=== PATIENT | female | born 1945 | race Caucasian/White ===

== ENCOUNTER 2016-08-24 08:22 | Outpatient (CLI) | payer OTHER, MEDICAID ==
[~2016-08-24 08:22] MED LIST: DABI150C PO; FAMO-90 PO; GABA300C1 PO; GEMF600T8 PO; INSU100S22 SQ; INSU100S22 SUBQ; INSU100S45 SUBQ; LIRA6SOL SC; [UNRECOGNIZED DRUG - REMARK]
[2016-08-24 08:50] LABS: BASOPHILS # (AUTO) 0.1 K/uL (0.00-0.22); BASOPHILS % (AUTO) 1.5 % (0.0-2.0); EOSINOPHILS # (AUTO) 0.2 K/uL (0-0.4); EOSINOPHILS % (AUTO) 2.5 % (0.0-4.0); HEMATOCRIT 41.6 % (36-48); HEMOGLOBIN 13.6 g/dL (12.0-16.0); LYMPHOCYTES # (AUTO) 0.9 K/uL (2.5-16.5); LYMPHOCYTES % (AUTO) 14.9 % (20.5-51.1); MEAN CORPUSCULAR HEMOGLOBIN 31 pg (27-31); MEAN CORPUSCULAR HGB CONC 33 g/dL (33-37); MEAN CORPUSCULAR VOLUME 95 fL (80-94); MONOCYTES # (AUTO) 0.5 K/uL (0.8-1.0); MONOCYTES % (AUTO) 7.5 % (1.7-9.3); NEUTROPHILS # (AUTO) 4.4 K/uL (1.8-7.7); NEUTROPHILS % (AUTO) 73.6 % (42.2-75.2); PLATELET COUNT (AUTO) 196 K/uL (140-450); RED BLOOD CELL COUNT(AUTO) 4.38 MIL/uL (4.20-5.40); RED CELL DISTRIBUTION WIDTH 12.9 % (11.6-13.7); WHITE BLOOD COUNT (AUTO) 6.1 K/uL (4.8-10.8)
[2016-08-24 09:29] LABS: POTASSIUM 3.9 mmol/L (3.5-5.1)
[2016-08-24 09:30] LABS: ANION GAP 13.1 (8-16); CALCIUM 9.2 mg/dL (8.5-10.1); CARBON DIOXIDE 26.8 mmol/L (21-32)
[2016-08-24 09:44] LABS: ALBUMIN 3.4 g/dL (3.4-5.0); TOTAL BILIRUBIN 0.5 mg/dL (0.0-1.0); TOTAL PROTEIN, SERUM 7.3 g/dL (6.4-8.2)
[2016-08-24 09:56] LABS: CHOL/HDL RATIO 2.1 (1-4.5)
[2016-08-24 10:25] LABS: THYROID STIMULATING HORMONE 1.01 uIU/mL (0.34-3.76)
== END 2016-08-24 20:12 | disposition home or self-care (01) ==
LOC: MLB 08:22
PROVIDERS: ATTEND Family Medicine
DX: I48.91 Unspecified atrial fibrillation (principal); E11.9 Type 2 diabetes mellitus without complications; I10 Essential (primary) hypertension
CPT/HCPCS: 36415; 80053; 83036; 84443; 85025

== ENCOUNTER 2016-12-16 20:15 | Inpatient (IN) | payer OTHER, MEDICAID ==
[~2016-12-16] VITALS: Ht 170.2 cm; Wt 90.7 kg
[2016-12-16 20:30] VITALS: BP 125/72
[2016-12-16] MEDS ORDERED: NACL 0.9% 1,000 ML IV ONE (20:45)
[2016-12-16] MEDS ORDERED: [UNRECOGNIZED DRUG - CODE] PO (21:08)
[2016-12-16] MEDS ORDERED: ATOR40TA PO (21:08)
[2016-12-16] MEDS ORDERED: LEVOFLOXACIN 500 MG/D5W PREMIX 100 ML IV ONE (21:30)
[2016-12-16 21:40] LABS: HEMATOCRIT 34.9 % (36-48); HEMOGLOBIN 11.3 g/dL (12.0-16.0); MEAN CORPUSCULAR HEMOGLOBIN 31 pg (27-31); MEAN CORPUSCULAR HGB CONC 32 g/dL (33-37); MEAN CORPUSCULAR VOLUME 95 fL (80-94); PLATELET COUNT (AUTO) 267 K/uL (140-450); RED BLOOD CELL COUNT(AUTO) 3.67 MIL/uL (4.20-5.40); RED CELL DISTRIBUTION WIDTH 13.5 % (11.6-13.7); WHITE BLOOD COUNT (AUTO) 18.5 K/uL (4.8-10.8)
[2016-12-16 21:43] LABS: BILIRUBIN,URINE NEGATIVE (NEGATIVE); BLOOD, URINE 1+ (NEGATIVE); LEUKOCYTE ESTERASE ,URINE 1+ (NEGATIVE); NITRITE, URINE NEGATIVE (NEGATIVE); UGLUCOSE NEGATIVE (NEGATIVE)
[2016-12-16 21:49] LABS: BARBITURATE, URINE NEG. ng/ml (NEG <=200); BENZODIAZEPINE, URINE NEG. ng/mL (NEG <=200); CANNABINOID, URINE NEG. ng/mL (NEG <=50); COCAINE, URINE NEG. ng/mL (NEG <=300); OPIATE, URINE NEG. ng/mL (NEG <=2000); PHENCYCLIDINE SCREEN,URINE NEG. ng/mL (NEG <=25)
[2016-12-16 21:55] LABS: APPEARANCE,URINE CLOUDY (CLEAR); COLOR,URINE YELLOW (YELLOW)
[2016-12-16 22:04] LABS: ALBUMIN 2.4 g/dL (3.4-5.0); ANION GAP 11.4 (8-16); CREATININE 1.5 mg/dL (0.6-1.3); POTASSIUM 3.4 mmol/L (3.5-5.1); TOTAL BILIRUBIN 0.6 mg/dL (0.0-1.0)
[2016-12-16 22:05] LABS: PROTHROMBIN TIME 16.1 secs (10.8-13.4)
[2016-12-16 22:07] LABS: LYMPHOCYTES % (MANUAL) 6 % (20-46); MONOCYTES % (MANUAL) 5 % (5-12)
[2016-12-16 22:13] LABS: RBC,URINE 3-10 (FEW) /HPF (0-5); WBC,URINE TOO MANY TO COUNT /HPF (0-5)
[2016-12-16] MEDS ORDERED: NACL 0.9% 2,000 ML IV ONE (22:20)
[2016-12-16 22:23] LABS: SALICYLATE < 2.8 mg/dL (2.8-20.0)
[2016-12-16 22:24] LABS: ACETAMINOPHEN < 0.5 ug/ml (10-30)
[2016-12-16 23:00] VITALS: BP 90/46
[2016-12-16] MEDS ORDERED: DEXTROSE 50% 50 ML SYR IVP PRN (23:55)
[2016-12-17] VITALS (11 sets, daily range): BP systolic 75–154; BP diastolic 40–75
[2016-12-17] MEDS: NACL 0.45% 1,000 ML IV SCH ×2 (00:32→13:29)
[2016-12-17] MEDS: BLOOD GLUCOSE MONITORING 1 DEV DEV FS SCH ×5 (00:33→21:46)
[2016-12-17] MEDS: INSULIN LISPRO SLIDING SCALE 100 UNITS/ML VIAL SUBQ PRN ×4 (00:35→22:35)
[2016-12-17] MEDS ORDERED: ACETAMINOPHEN 325 MG TAB PO PRN (01:15)
[2016-12-17] MEDS ORDERED: DIGOXIN 0.25 MG TAB PO SCH (02:15)
[2016-12-17] MEDS ORDERED: NACL 0.9% 250 ML IV SCH (05:00)
[2016-12-17] MEDS: DIGOXIN 0.25 MG TAB PO SCH (09:00)
[2016-12-17] MEDS ORDERED: POTASSIUM CHLORIDE 10 MEQ TABER PO SCH (09:30)
[2016-12-17 09:39] LABS: HEMATOCRIT 32.8 % (36-48); HEMOGLOBIN 10.5 g/dL (12.0-16.0); MEAN CORPUSCULAR HEMOGLOBIN 31 pg (27-31); MEAN CORPUSCULAR HGB CONC 32 g/dL (33-37); MEAN CORPUSCULAR VOLUME 96 fL (80-94); PLATELET COUNT (AUTO) 221 K/uL (140-450); RED BLOOD CELL COUNT(AUTO) 3.42 MIL/uL (4.20-5.40); WHITE BLOOD COUNT (AUTO) 27.6 K/uL (4.8-10.8)
[2016-12-17 10:01] LABS: BASOPHILS % (MANUAL) 0 % (0-2); EOSINOPHILS % (MANUAL) 0 % (0-4); LYMPHOCYTES % (MANUAL) 4 % (20-46); MONOCYTES % (MANUAL) 7 % (5-12)
[2016-12-17 10:13] LABS: CREATINE KINASE MB 0.5 ng/mL (0-3.6)
[2016-12-17 10:26] LABS: ANION GAP 8.7 (8-16); CREATININE 1.6 mg/dL (0.6-1.3); POTASSIUM 3.7 mmol/L (3.5-5.1); TOTAL BILIRUBIN 0.5 mg/dL (0.0-1.0)
[2016-12-17] MEDS ORDERED: INSULIN GLARGINE HUM REC ANLOG U SQ SCH (16:00)
[2016-12-17] MEDS: INSULIN DETEMIR 100 UNITS/ML 10 ML VIAL SUBQ SCH (17:58)
[2016-12-17] MEDS ORDERED: LEVOFLOXACIN 250 MG/D5 PREMIX 50 ML IV SCH (21:00)
[2016-12-17] MEDS: FAMOTIDINE 20 MG TAB PO SCH (21:46)
[2016-12-17] MEDS: METOPROLOL 25 MG TAB PO SCH (21:46)
[2016-12-17] MEDS: GABAPENTIN 300 MG CAP PO SCH (21:46)
[2016-12-17] MEDS: DABIGATRAN ETEXILATE MESYLAT 75 MG CAP PO SCH (22:37)
[2016-12-18] VITALS: BP 89/47
[2016-12-18] MEDS: NACL 0.45% 1,000 ML IV SCH (00:28)
[2016-12-18 04:00] VITALS: BP 122/59
[2016-12-18 06:08] LABS: HEMATOCRIT 32.1 % (36-48); HEMOGLOBIN 10.4 g/dL (12.0-16.0); MEAN CORPUSCULAR HEMOGLOBIN 31 pg (27-31); MEAN CORPUSCULAR HGB CONC 32 g/dL (33-37); MEAN CORPUSCULAR VOLUME 95 fL (80-94); PLATELET COUNT (AUTO) 203 K/uL (140-450); RED BLOOD CELL COUNT(AUTO) 3.37 MIL/uL (4.20-5.40); RED CELL DISTRIBUTION WIDTH 13.9 % (11.6-13.7); WHITE BLOOD COUNT (AUTO) 19.4 K/uL (4.8-10.8)
[2016-12-18 06:52] LABS: ANION GAP 12.8 (8-16); CARBON DIOXIDE 24.2 mmol/L (21-32); CREATININE 1.2 mg/dL (0.6-1.3)
[2016-12-18] MEDS: BLOOD GLUCOSE MONITORING 1 DEV DEV FS SCH ×4 (07:00→20:40)
[2016-12-18 07:04] LABS: FREE T4 (FREE THYROXINE) 1.46 ng/dL (0.76-1.46); THYROID STIMULATING HORMONE 0.44 uIU/mL (0.34-3.74)
[2016-12-18 08:00] VITALS: BP 115/83
[2016-12-18 08:05] LABS: EOSINOPHILS % (MANUAL) 4 % (0-4); LYMPHOCYTES % (MANUAL) 9 % (20-46); MONOCYTES % (MANUAL) 2 % (5-12)
[2016-12-18] MEDS: DIGOXIN 0.25 MG TAB PO SCH (08:40)
[2016-12-18] MEDS: METOPROLOL 25 MG TAB PO SCH ×2 (08:41→20:34)
[2016-12-18] MEDS: GABAPENTIN 300 MG CAP PO SCH ×2 (08:41→20:35)
[2016-12-18] MEDS: FAMOTIDINE 20 MG TAB PO SCH ×2 (08:41→20:35)
[2016-12-18] MEDS: DABIGATRAN ETEXILATE MESYLAT 75 MG CAP PO SCH ×2 (08:44→20:41)
[2016-12-18] MEDS: ATORVASTATIN 20 MG TAB PO SCH (08:44)
[2016-12-18] MEDS ORDERED: CLINICAL MONITORING MC SCH (09:00)
[2016-12-18] MEDS ORDERED: POTASSIUM CHLORIDE 10 MEQ TABER PO SCH (10:01)
[2016-12-18] MEDS: POTASSIUM CHL 20 MEQ/ 1/2 NS 1,000 ML IV SCH ×2 (10:26→23:03)
[2016-12-18 12:00] VITALS: BP 110/58
[2016-12-18] MEDS: MEROPENEM 500 MG in NACL 0.9% 50 ML IV SCH ×2 (12:13→20:34)
[2016-12-18] MEDS: INSULIN LISPRO SLIDING SCALE 100 UNITS/ML VIAL SUBQ PRN ×3 (12:18→21:15)
[2016-12-18 16:00] VITALS: BP 124/63
[2016-12-18] MEDS: INSULIN DETEMIR 100 UNITS/ML 10 ML VIAL SUBQ SCH (16:32)
[2016-12-18 20:00] VITALS: BP 128/68
[2016-12-19] VITALS: BP 138/67
[2016-12-19 04:00] VITALS: BP 129/57
[2016-12-19] MEDS: MEROPENEM 500 MG in NACL 0.9% 50 ML IV SCH (04:41)
[2016-12-19] MEDS: BLOOD GLUCOSE MONITORING 1 DEV DEV FS SCH ×2 (05:37→11:30)
[2016-12-19 06:28] LABS: BASOPHILS # (AUTO) 0.1 K/uL (0.00-0.22); BASOPHILS % (AUTO) 0.6 % (0.0-2.0); EOSINOPHILS # (AUTO) 0.4 K/uL (0-0.4); HEMATOCRIT 31.6 % (36-48); HEMOGLOBIN 10.4 g/dL (12.0-16.0); LYMPHOCYTES # (AUTO) 0.9 K/uL (2.5-16.5); MEAN CORPUSCULAR HEMOGLOBIN 31 pg (27-31); MEAN CORPUSCULAR HGB CONC 33 g/dL (33-37); MEAN CORPUSCULAR VOLUME 96 fL (80-94); MONOCYTES # (AUTO) 0.5 K/uL (0.8-1.0); MONOCYTES % (AUTO) 4.2 % (1.7-9.3); NEUTROPHILS # (AUTO) 10.8 K/uL (1.8-7.7); NEUTROPHILS % (AUTO) 85.2 % (42.2-75.2); PLATELET COUNT (AUTO) 213 K/uL (140-450); RED CELL DISTRIBUTION WIDTH 13.8 % (11.6-13.7)
[2016-12-19 06:46] LABS: ANION GAP 12.3 (8-16); CARBON DIOXIDE 25.8 mmol/L (21-32); CREATININE 1.1 mg/dL (0.6-1.3); POTASSIUM 4.1 mmol/L (3.5-5.1)
[2016-12-19 07:30] LABS: WHITE BLOOD COUNT (AUTO) 12.7 K/uL (4.8-10.8)
[2016-12-19 08:00] VITALS: BP 137/73
[2016-12-19] MEDS: FAMOTIDINE 20 MG TAB PO SCH (08:39)
[2016-12-19] MEDS: GABAPENTIN 300 MG CAP PO SCH (08:39)
[2016-12-19] MEDS: DIGOXIN 0.25 MG TAB PO SCH (08:39)
[2016-12-19] MEDS: ATORVASTATIN 20 MG TAB PO SCH (08:39)
[2016-12-19] MEDS: METOPROLOL 25 MG TAB PO SCH (08:40)
[2016-12-19] MEDS: DABIGATRAN ETEXILATE MESYLAT 75 MG CAP PO SCH (08:43)
[2016-12-19 12:00] VITALS: BP 111/66
[2016-12-19] MEDS: INSULIN LISPRO SLIDING SCALE 100 UNITS/ML VIAL SUBQ PRN (12:52)
== END 2016-12-19 16:15 | DRG 871 ==
LOC: MED 20:15 → MTU 23:44
PROVIDERS: ADMIT Family Medicine; ATTEND Family Medicine
DX: A41.51 Sepsis due to Escherichia coli [E. coli] (principal); R65.21 Severe sepsis with septic shock; I48.0 Paroxysmal atrial fibrillation; G93.89 Other specified disorders of brain; N39.0 Urinary tract infection, site not specified; I10 Essential (primary) hypertension; E86.0 Dehydration; E11.9 Type 2 diabetes mellitus without complications; D63.8 Anemia in other chronic diseases classified elsewhere; I48.2 Chronic atrial fibrillation; E78.5 Hyperlipidemia, unspecified; I25.10 Atherosclerotic heart disease of native coronary artery without angina pectoris; T67.5XXA Heat exhaustion, unspecified, initial encounter; E87.6 Hypokalemia; W01.0XXA Fall on same level from slipping, tripping and stumbling without subsequent striking against object, initial encounter; Z63.8 Other specified problems related to primary support group; I25.2 Old myocardial infarction; Z79.01 Long term (current) use of anticoagulants; Z79.899 Other long term (current) drug therapy; Y93.89 Activity, other specified; Y92.003 Bedroom of unspecified non-institutional (private) residence as the place of occurrence of the external cause; Z79.4 Long term (current) use of insulin
CPT/HCPCS: 36415; 70450; 71010; 80048; 80053; 80305; 81001; 82550; 82553; 82948; 83605; 83880; 84439; 84443; 84484; 85025; 85610; 85730; 87040; 87081; 87086; 87186; 93005; 96361; 96365; 97110; 99291; G0480; G0482; J0696; J1815; J1956; J2185; J3480; J7030; J7060; Q0092

== ENCOUNTER 2017-07-11 02:55 | Inpatient (IN) | payer OTHER, MEDICAID ==
[~2017-07-11] VITALS: Ht 162.6 cm; Wt 72.6 kg
[~2017-07-11 02:55] MED LIST changes: +ATOR40TA PO; +[UNRECOGNIZED DRUG - CODE] PO
[2017-07-11 02:59] VITALS: BP 112/65
--- NOTE | 2017-07-11 03:05 | NUR ---
72 Y/O F BIBA W/C/O HEDACHE S/P FALL AND HITTING HEAD, NAUSEA AND VOMITING X THIS AM. PT STATES HAS HAD HEAVY VAGINAL BLEEDING X 2 DAYS. PT ALERT AND ORIENTED X 4, ON CARDIA MONITOR. ER MD MADE AWARE.
[2017-07-11] MEDS ORDERED: NACL 0.9% 1,000 ML IV ONE (03:24)
--- NOTE | 2017-07-11 03:40 | NUR ---
Pelvic exam performed by DR JOYA with ME at bedside for entire examination. Patient tolerated procedure WELL. VAGINAL BLEEDING NOTED. Patient assisted to position of comfort after examination.
[2017-07-11 03:55] LABS: BASOPHILS # (AUTO) 0.3 K/uL (0.00-0.22); BASOPHILS % (AUTO) 3.6 % (0.0-2.0); EOSINOPHILS # (AUTO) 0.1 K/uL (0-0.4); EOSINOPHILS % (AUTO) 1.5 % (0.0-4.0); HEMATOCRIT 35.4 % (36-48); HEMOGLOBIN 11.3 g/dL (12.0-16.0); LYMPHOCYTES # (AUTO) 0.8 K/uL (2.5-16.5); MEAN CORPUSCULAR HEMOGLOBIN 31 pg (27-31); MEAN CORPUSCULAR HGB CONC 32 g/dL (33-37); MEAN CORPUSCULAR VOLUME 95.7 fL (80-94); MONOCYTES # (AUTO) 0.5 K/uL (0.8-1.0); MONOCYTES % (AUTO) 6.5 % (1.7-9.3); NEUTROPHILS # (AUTO) 5.8 K/uL (1.8-7.7); NEUTROPHILS % (AUTO) 78.4 % (42.2-75.2); PLATELET COUNT (AUTO) 212 K/uL (140-450); RED CELL DISTRIBUTION WIDTH 14.1 % (11.6-13.7); WHITE BLOOD COUNT (AUTO) 7.5 K/uL (4.8-10.8)
[2017-07-11 03:59] LABS: APPEARANCE,URINE CLEAR (CLEAR); BILIRUBIN,URINE NEGATIVE (NEGATIVE); BLOOD, URINE 2+ (NEGATIVE); COLOR,URINE YELLOW (YELLOW); LEUKOCYTE ESTERASE ,URINE NEGATIVE (NEGATIVE); NITRITE, URINE NEGATIVE (NEGATIVE); UGLUCOSE NEGATIVE (NEGATIVE)
[2017-07-11 04:14] LABS: ANION GAP 19.6 (8-16); ASPARTATE AMINOTRANSFERASE 23 U/L (15-37); CARBON DIOXIDE 19.9 mmol/L (21-32); CHLORIDE 105 mmol/L (98-107); CREATININE 1.3 mg/dL (0.6-1.3); GLUCOSE 210 mg/dL (74-106); POTASSIUM 4.5 mmol/L (3.5-5.1); SODIUM SERUM 140 mmol/L (136-145); TOTAL BILIRUBIN 0.3 mg/dL (0.0-1.0); UREA NITROGEN, BLOOD 30 mg/dL (7-18)
--- NOTE | 2017-07-11 04:21 | NUR ---
PATIENT TAKEN TO CT
--- NOTE | 2017-07-11 04:23 | NUR ---
ULTRASOUND AT BEDSIDE.
[2017-07-11 04:26] LABS: RBC,URINE 0-5 (RARE) /HPF (0-5); WBC,URINE 0-5 (RARE) /HPF (0-5)
[2017-07-11 04:29] LABS: PROTHROMBIN TIME 15.8 secs (10.8-13.4)
--- NOTE | 2017-07-11 05:40 | NUR ---
Patient appears to be resting comfortably in bed. Respirations even and unlabored.
--- NOTE | 2017-07-11 06:20 | NUR ---
Patient will be admitted to care of . Admited to TELE. Will go to room 121 A. Belongings list completed. Report to ADÁN BOUCHER.
--- NOTE | 2017-07-11 07:00 | NUR ---
RECEIVED REPORT FROM PROPERTY MANAGEMENT BOOKKEEPER NURSE AT BEDSIDE FOR CONT OF CARE. PATIENT RESTING WITH EYES CLOSED EASILY WOKEN. NO ACUTE DISTRESS NOTED. PATIENT RESPONDS APPROPRIATELY TO QUESTIONS. PATIENT WITH LEFT HAND 20G AND LEFT WRIST 22G SL.CALL LIGHT WITHIN REACH. WILL CONT TO MONITOR.
[2017-07-11] MEDS ORDERED: DEXTROSE 50% 50 ML SYR IVP PRN (07:40)
[2017-07-11] MEDS: POTASSIUM CHL 20 MEQ/ 1/2 NS 1,000 ML IV SCH (07:40)
[2017-07-11] MEDS ORDERED: DIGOXIN 0.25 MG/ML AMP IV SCH (08:00)
[2017-07-11 08:27] VITALS: BP 99/52
[2017-07-11] MEDS: GABAPENTIN 300 MG CAP PO SCH ×2 (09:31→21:00)
[2017-07-11] MEDS: ATORVASTATIN 20 MG TAB PO SCH (09:31)
[2017-07-11] MEDS: FAMOTIDINE 20 MG TAB PO SCH ×2 (09:31→21:00)
--- NOTE | 2017-07-11 09:31 | NUR ---
ADMINISTERED SCHEDULED MEDICATIONS ORDERED. TOLERATED WELL. PT ALERT AND ABLE TO MAKE NEEDS KNOWN. NO ACUTE DISTRESS NOTED. CALL LIGHT WITHIN REACH. FREQUENT VISUAL CHECKS. DENIES PAIN. WILL CONT TO MONITOR PT.
--- NOTE | 2017-07-11 11:00 | NUR ---
PATIENT ALERT AND ABLE TO VERBALIZE NEEDS. SLEEPING BUT EASILY WOKEN. NO ACUTE DISTRESS NOTED. DENIES PAIN. CALL LIGHT WITHIN REACH. WILL CONT TO MONITOR.
--- NOTE | 2017-07-11 11:11 | NUR ---
PATIENT HAS BEEN SCREENED AND CATEGORIZED MODERATE NUTRITION RISK. PATIENT WILL BE SEEN WITHIN 3-5 DAYS OF ADMISSION. 07/13/17 - 07/15/[address]
[2017-07-11] MEDS ORDERED: INSULIN ASPART 10 UNIT SUBQ SCH (11:30)
[2017-07-11] MEDS: BLOOD GLUCOSE MONITORING 1 DEV DEV FS SCH ×3 (11:30→20:30)
--- NOTE | 2017-07-11 11:53 | NUR ---
PATIENT BEING SEEN BY PT PATIENT WITH ORTHOSTATIC HYPOTENSION WHEN SITTING . BP AT 152/102 HR 113. LAYING IN BED. SITTING DROPPED TO 74/43 HR 93. PATIENT VERBALIZED FEELING FAINT AND DIZZY. PATIENT LAYED DOWN AGAIN RECHECKED BP 90/53 HR 96. PATIENT ALSO NOTED WITH SATURATED PULL UP WITH BLOOD WITH CLOTS. CALLED DR STREET TO MAKE AWARE OF PATIENT CONDITION. WITH NEW ORDER FOR BOLUS 550CC X 1 OF NS. AND TO CONTACT DR HANDY FOR F/U YELENA. ALSO DISCUSSED PATIENT BLOOD GLUCOSE ORDERS DR STREET CLARIFIED ORDERS. WILL CONTACT DR HANDY. WILL CONT TO MONITOR PT.
[2017-07-11 12:00] VITALS: BP 94/52
[2017-07-11] MEDS ORDERED: NACL 0.9% 500 ML IV SCH (12:03)
[2017-07-11] MEDS ORDERED: INSULIN LISPRO 100 UNITS/ML VIAL SUBQ SCH (12:24)
--- NOTE | 2017-07-11 12:24 | NUR ---
PATIENT INSULIN NOVOLOG 10 UNITS HELD. PATIENT HAD ALREADY HAD LUNCH AND BLOOD SUGAR AT 140. PATIENT ALERT AND ABLE TO MAKE NEEDS KNOWN. NO ACUTE DISTRESS. PATIENT BP94/52, HR 61. WILL CONT TO MONITOR PT.
--- NOTE | 2017-07-11 13:00 | NUR ---
CALLED DR HANDY TO MAKE AWARE OF PATIENT CONDITION. VERBALIZED HE WOULD COME IN TO SEE THE PATIENT SOON. WILL CONT TO MONITOR PT. 94/52 AND HR 61.
--- NOTE | 2017-07-11 13:21 | NUR ---
DR HANDY IN UNIT TO SEE PATIENT .EXPLAINED PLAN TO PATIENT . KEEP PT NPO AND SCHEDULE FOR D&C.
--- NOTE | 2017-07-11 15:00 | NUR ---
PATIENT MADE AWARE THAT PROCEDURE TO BE DONE TONIGHT AROUND 2100 PATIENT VERBALIZED UNDERSTANDING AND AGREEMENT. NO ACUTE DISTRESS NOTED. CALL LIGHT WITHIN REACH. WILL CONT TO MONITOR PT. CONSENT FOR D&C AND PREOPERATIVE CHECKLIST DONE AND IN CHART.
[2017-07-11 16:00] VITALS: BP 106/55
[2017-07-11] MEDS ORDERED: INSULIN GLARGINE HUM REC ANLOG U SQ SCH (16:00)
--- NOTE | 2017-07-11 17:30 | NUR ---
PATIENT ALERT AND ABLE TO MAKE NEEDS KNOWN. IN BED RESTING COMFORTABLY. EASILY WOKEN. NO ACUTE DISTRESS NOTED. DENIES PAIN. PATIENT DENIES DIZZINESS AT THIS TIME. CALL LIGHT WITHIN REACH. WILL CONT TO MONITOR.
--- NOTE | 2017-07-11 19:20 | NUR ---
ENDORSED REPORT TO OUTSIDE PARTS SALESMAN NURSE AT BEDSIDE FOR CONTINUITY OF CARE. PATIENT STABLE.
[2017-07-11 20:00] VITALS: BP 100/54
--- NOTE | 2017-07-11 20:45 | NUR ---
OR CREW HERE, TRANSPORTED TO OR PER BED IN STABLE CONDITION FOR D&C PROCEDURE.
[2017-07-11] MEDS ORDERED: INSULIN DETEMIR 100 UNITS/ML 10 ML VIAL SUBQ SCH (21:00)
[2017-07-11] MEDS ORDERED: PROPOFOL 200 MG/20 ML VIAL IV ONE (22:00)
[2017-07-11] MEDS ORDERED: SEVOFLURANE 250 ML BTL INH ONE (22:00)
[2017-07-11] MEDS ORDERED: MORPHINE SULFATE 4 MG/ML SYR ONE (22:44)
[2017-07-11] MEDS ORDERED: MORPHINE SULFATE 2 MG/ML SYR IVP ONE (22:45)
--- NOTE | 2017-07-11 23:05 | NUR ---
PT BACK FROM SX S/P D&C, PT AAOX4, VITAL SIGNS STABLE:BP-117/59, HR-89, RR-18, SAT-100% ON ROOM AIR, WITH LOWER ABDOMINAL PAIN 5/10, PERIPAD IN PLACE WITH SCANTY BLEEDING NOTED, RESUMED IVF, PT ASKING FOR SOME WATER, PAGED DR HANDY, AWAITING CALL BACK, MONITORED CLOSELY.
[2017-07-11] MEDS ORDERED: MORPHINE SULFATE 2 MG/ML SYR IVP SCH (23:30)
--- NOTE | 2017-07-11 23:35 | NUR ---
DR HANDY CALLED BACK, ERIN TO RESUME PREVIOUS DIET, JUICE AND ICE WATER PROVIDED PER REQUEST, TOLERATED WELL, VITAL SIGNS STABLE, CALL LIGHT WITHIN REACH, CONTINUE TO MONITOR CLOSELY.
[2017-07-12] VITALS (9 sets, daily range): BP systolic 77–125; BP diastolic 46–61
--- NOTE | 2017-07-12 01:00 | NUR ---
PT SLEEPING, EASILY AROUSABLE, VITAL SIGNS TAKEN: BP-115/60, HR-87, RR-18. SAT-98% ON ROOM AIR, DENIES ANY PAIN, MONITORED CLOSELY.
[2017-07-12] MEDS: POTASSIUM CHL 20 MEQ/ 1/2 NS 1,000 ML IV SCH ×2 (01:37→17:00)
--- NOTE | 2017-07-12 02:48 | NUR ---
PT SLEEPING, EASILY AROUSABLE, VITAL SIGNS:BP-96/48, HR-88, RR-18, SAT-100%, DENIES PAIN, MINIMAL BLEEDING WITH BLOOD CLOTS NOTED, NOT ABLE TO VOID YET, IVF INFUSING WELL, MONITORED CLOSELY.
--- NOTE | 2017-07-12 03:52 | NUR ---
PT SLEEPING, EASILY AROUSABLE, VITAL SIGNS STABLE, DENIES PAIN, NO SOB NOTED, IVF INFUSING WELL, MONITORED CLOSELY.
--- NOTE | 2017-07-12 04:37 | NUR ---
PT AWAKE, INCONTINENT OF URINE, PERINEAL CARE DONE, MINIMAL BLEEDING WITH SINGLE BLOOD CLOT NOTED, NEW PERIPAD APPLIED, IVF INFUSING WELL, MONITORED CLOSELY.
--- NOTE | 2017-07-12 05:50 | NUR ---
BLOOD SUGAR CHECKED WITH 129 RESULT, NO COVERAGE NEEDED, DENIES ANY PAIN, IVF INFUSING WELL, MONITORED CLOSELY.
[2017-07-12] MEDS: BLOOD GLUCOSE MONITORING 1 DEV DEV FS SCH ×4 (06:47→21:25)
--- NOTE | 2017-07-12 07:13 | NUR ---
PT SLEEPING, NO SIGNS OF DISTRESS, REPORT GIVEN TO SANDER ESTEVEZ FOR CONTINUITY OF CARE.
--- NOTE | 2017-07-12 07:14 | NUR ---
RECEIVED REPORT AT BEDSIDE FROM STRONG NITRIC OPERATOR NURSE FOR CONTINUITY OF CARE. PATIENT RESTING WITH EYES CLOSED. RESP EVEN AND UNLABORED. PT WITH IV TO LEFT HAND 20G WITH 1/2NS WITH K+20MEQ RUNNING AT 60ML/HR . WILL CONT TO MONITOR.
[2017-07-12 07:35] LABS: ANION GAP 13.9 (8-16); CARBON DIOXIDE 21.4 mmol/L (21-32); CHLORIDE 111 mmol/L (98-107); GLUCOSE 148 mg/dL (74-106); POTASSIUM 4.3 mmol/L (3.5-5.1); SODIUM SERUM 142 mmol/L (136-145); UREA NITROGEN, BLOOD 25 mg/dL (7-18)
--- NOTE | 2017-07-12 08:00 | NUR ---
PATIENT RESTING IN BED WITH EYES CLOSES EASILY WOKEN. PATIENT ALERT AND ABLE TO MAKE NEEDS KNOWN. RESPONDS TO QUESTIONS APPROPRIATELY. NO ACUTE DISTRESS NOTED. PATIENT STATED 5/10 PAIN TO ABDOMEN THAT FEEL LIKE MENSTRUAL CRAMPS.WILL MEDICATE. PATIENT WITH SCANT BLOOD TO MAXI PAD. INITIAL ASSESSMENT PERFORMED. LUNG SOUNDS CLEAR. BOWEL SOUNDS ACTIVE. PATIENT WITH LEFT HAND 20G WITH 1/2NS WITH K+20MEQ RUNNING AT 60ML/HR. SKIN INTACT.DISCUSSED PLAN OF CARE WITH PATIENT AT BEDSIDE. PATIENT VERBALIZED UNDERSTANDING AND AGREEMENT.CALL LIGHT WITHIN REACH. WILL CONT TO MONITOR PT.
--- NOTE | 2017-07-12 08:05 | NUR ---
CALLED DR STREET REGARDING PATIENT C/O PAIN WITH NO PAIN MEDICATION ORDERED. DR STREET GAVE NEW ORDER FOR NORCO 10/325 I TAB Q6HRS PRN FOR MODERATE PAIN. PENDING PHARM VERIFICATION FOR ADMINISTRATION.
[2017-07-12] MEDS: GABAPENTIN 300 MG CAP PO SCH ×2 (08:37→21:34)
[2017-07-12] MEDS: FAMOTIDINE 20 MG TAB PO SCH ×2 (08:38→21:33)
[2017-07-12] MEDS: ATORVASTATIN 20 MG TAB PO SCH (08:38)
[2017-07-12] MEDS: HYDROcodone/APAP 10/325 MG 1 TAB TAB PO PRN (08:38)
[2017-07-12] MEDS: DIGOXIN 0.125 MG TAB PO SCH (08:39)
[2017-07-12 08:40] LABS: HEMATOCRIT 23.2 % (36-48); HEMOGLOBIN 7.7 g/dL (12.0-16.0); MEAN CORPUSCULAR HEMOGLOBIN 31 pg (27-31); MEAN CORPUSCULAR HGB CONC 33 g/dL (33-37); MEAN CORPUSCULAR VOLUME 94.2 fL (80-94); PLATELET COUNT (AUTO) 151 K/uL (140-450); RED BLOOD CELL COUNT(AUTO) 2.47 MIL/uL (4.20-5.40); RED CELL DISTRIBUTION WIDTH 14.4 % (11.6-13.7)
--- NOTE | 2017-07-12 09:30 | NUR ---
CALLED DR STREET REGARDING PATIENT LABS H&H 7.7 [address] WITH NEW ORDER FOR FERROUS SULFATE 325MG I TAB PO TID PATIENT MADE AWARE OF NEW ORDERS. WILL CONT TO MONITOR.
[2017-07-12] MEDS: INSULIN LISPRO 100 UNITS/ML VIAL SUBQ SCH (11:30)
--- NOTE | 2017-07-12 11:56 | NUR ---
PHYSICAL THERAPY WORKING WITH PATIENT AND REPORTED THAT PATIENT WITH ANOTHER EPISODE OF ORTHOSTATIC HYPOTENSION. SUPINE 113/53 HR 81, SITTING 101/49 HR 98, STANDING 77/47 104 AND FEELING FAINT. PATIENT RETURNED TO SUPINE BP 96/64 HR 88, REPORTED TO DR STREET WITH NEW ORDER FOR BOLUS NS [id number] THEN RECHECK ORTHOSTATIC BP. WILL CONT TO MONITOR.
[2017-07-12] MEDS ORDERED: NACL 0.9% 500 ML IV SCH ×2 (12:00→13:40)
[2017-07-12] MEDS: FERROUS SULFATE 325 MG TABEC PO SCH ×2 (12:32→16:33)
--- NOTE | 2017-07-12 13:30 | NUR ---
SPOKE TO DR STREET REGARDING ORTHOSTATIC BP LAYING 107/41 HR 81, SITTING 94/38 HR 92. STANDING 89/48 97 PATIENT VERBALIZED FEELING SLIGHTLY LIGHT HEADED AND DIZZY BUT MENTIONED NOT BAD WHEN PT WAS THERE. PATIENT ABLE TO STAND FOR ABOUT 1 MIN RECHECKED BP 92/44 HR 91, WITH NEW ORDER FOR ANOTHER NS 500ML BOLUS X1 . NOTIFIED DR STREET OF HOLDING STANDING DOSE OF 10 UNITS AT LUNCH TIME. PATIENT BLOOD GLUCOSE AT BEFORE LUNCH WAS 176 AND 1 HRS AFTER LUNCH WAS 203. PATIENT AWAKE ALERT AND ABLE TO MAKE NEEDS KNOWN. RESPONDING APPROPRIATELY TO QUESTIONS. WILL CONT TO MONITOR.
--- NOTE | 2017-07-12 14:17 | NUR ---
CM NOTE CLINICAL INFORMATION FAXED TO [facility] / FAX# [phone]
--- NOTE | 2017-07-12 14:30 | NUR ---
ADMINISTERED NS @500ML BOLUS X1 . PATIENT TOLERATED WELL. PATIENT IN BED RESTING. NO ACUTE DISTRESS. CALL LIGHT WITHIN REACH. WILL CONT TO MONITOR.
--- NOTE | 2017-07-12 15:37 | NUR ---
CM NOTE PER DANTE FROM [facility], PATIENT HAS BEEN ACCEPTED FOR SKILLED CARE (RM 18).
[2017-07-12 15:59] LABS: EOSINOPHILS % (MANUAL) 1 % (0-4); LYMPHOCYTES % (MANUAL) 24 % (20-46); MONOCYTES % (MANUAL) 8 % (5-12)
--- NOTE | 2017-07-12 17:00 | NUR ---
PATIENT CALLED TO BE CHANGED. PATIENT WITH 3RD MODERATELY FILLED PAD MIXED WITH URINE SINCE AM.NOT BRIGHT COLORED AND WITHOUT CLOTS. PATIENT DENIES PAIN OR DISCOMFORT. CALL LIGHT WITHIN REACH. WILL CONT TO MONITOR.
--- NOTE | 2017-07-12 19:20 | NUR ---
ENDORSED REPORT TO CAR SWEEPER NURSE AT BEDSIDE FOR CONTINUITY OF CARE. PATIENT STABLE.
--- NOTE | 2017-07-12 20:30 | NUR ---
PT VOIDED FREELY PER BEDPAN, NO BLEEDING NOTED, ASSIST IN REPOSITIONING AND OFFLOAD PRESSURE AREAS, ALL NEEDS ATTENDED.
--- NOTE | 2017-07-12 21:23 | NUR ---
NO LEVEMIR INSULIN AVAILABLE, PAGED DR STREET, ORDER TO DECREASE 20 UNITS OF LEVEMIR QHS AND SUBSTITUTE FOR NOW TO LANTUS 20 UNITS SUB-Q QHS UNTIL LEVEMIR IS AVAILABLE, WILL CARRY OUT.
[2017-07-12] MEDS ORDERED: INSULIN LANTUS 100 UNITS/ML 10 ML VIAL SUBQ SCH (21:30)
[2017-07-12] MEDS: INSULIN LISPRO SLIDING SCALE 100 UNITS/ML VIAL SUBQ PRN (21:40)
--- NOTE | 2017-07-12 21:40 | NUR ---
BLOOD SUGAR CHECKED WITH 202 RESULT, COVERAGE GIVEN, SNACK PROVIDED, TOLERATING WELL, LANTUS 20 UNITS GIVEN ORDERED, ASSISTED BY ANTONIA RAUSCH IN BRUSHING TEETH AND SPONGE BATH, MONITORED CLOSELY.
[2017-07-13] VITALS (9 sets, daily range): BP systolic 65–136; BP diastolic 32–79
--- NOTE | 2017-07-13 | NUR ---
PT SLEEPING, EASILY AROUSABLE, VITAL SIGNS STABLE, DENIES ANY PAIN, NO SOB NOTED, REPOSITION AND OFFLOAD PRESSURES AREAS, IVF INFUSING WELL, CONTINUE TO MONITOR CLOSELY.
[2017-07-13] MEDS: POTASSIUM CHL 20 MEQ/ 1/2 NS 1,000 ML IV SCH ×2 (03:56→09:50)
--- NOTE | 2017-07-13 04:00 | NUR ---
PT INCONTINENT OF URINE, PERINEAL CARE DONE, VITAL SIGNS STABLE, DENIES ANY PAIN, CRANBERRY JUICE X2 PROVIDED PER REQUEST, TOLERATED WELL, MONITORED CLOSELY.
[2017-07-13] MEDS: INSULIN LISPRO SLIDING SCALE 100 UNITS/ML VIAL SUBQ PRN ×2 (05:43→21:17)
[2017-07-13] MEDS: BLOOD GLUCOSE MONITORING 1 DEV DEV FS SCH ×4 (06:48→21:20)
[2017-07-13 07:06] LABS: BASOPHILS # (AUTO) 0.1 K/uL (0.00-0.22); BASOPHILS % (AUTO) 2.9 % (0.0-2.0); EOSINOPHILS # (AUTO) 0.2 K/uL (0-0.4); HEMATOCRIT 23.9 % (36-48); HEMOGLOBIN 7.4 g/dL (12.0-16.0); LYMPHOCYTES # (AUTO) 0.6 K/uL (2.5-16.5); LYMPHOCYTES % (AUTO) 12.2 % (20.5-51.1); MEAN CORPUSCULAR HEMOGLOBIN 29 pg (27-31); MEAN CORPUSCULAR HGB CONC 31 g/dL (33-37); MEAN CORPUSCULAR VOLUME 94.8 fL (80-94); MONOCYTES # (AUTO) 0.4 K/uL (0.8-1.0); NEUTROPHILS # (AUTO) 3.8 K/uL (1.8-7.7); NEUTROPHILS % (AUTO) 74.9 % (42.2-75.2); PLATELET COUNT (AUTO) 153 K/uL (140-450); RED BLOOD CELL COUNT(AUTO) 2.52 MIL/uL (4.20-5.40); RED CELL DISTRIBUTION WIDTH 14.6 % (11.6-13.7); WHITE BLOOD COUNT (AUTO) 5.1 K/uL (4.8-10.8)
--- NOTE | 2017-07-13 07:15 | NUR ---
PT SLEEPING, EASILY AROUSABLE, BEDSIDE REPORT GIVEN TO SANDER HAND FOR CONTINUITY OF CARE.
--- NOTE | 2017-07-13 07:29 | NUR ---
PT AWAKE, NO SIGNS OF DISTRESS, REPORT GIVEN TO SANDER BUTLER FOR CONTINUITY OF CARE.
--- NOTE | 2017-07-13 07:30 | NUR ---
RECEIVED REPORT FROM CERTIFIED MORTICIAN NURSEBECK RN. PT IS RESTING IN BED, PT IS AAOX4, AMBULATES WITH ASSIST, ON ROOM AIR, PT HAS IV ON HER RIGHT WRIST, PATENT, INTACT, FLUSHING WELL, NO S/S OF RESPIRATORY DISTRESS OR DISCOMFORT NOTED, DISCUSSED PLAN OF CARE WITH PT, PT VERBALIZED UNDERSTANDING, SAFETY/FALL PRECAUTIONS ARE IN PLACE, CALL LIGHT IS WITHIN REACH, WILL CONTINUE TO MONITOR.
[2017-07-13] MEDS: FERROUS SULFATE 325 MG TABEC PO SCH ×3 (08:33→17:28)
[2017-07-13] MEDS: GABAPENTIN 300 MG CAP PO SCH ×2 (08:33→21:18)
[2017-07-13] MEDS: ATORVASTATIN 20 MG TAB PO SCH (08:33)
[2017-07-13] MEDS: HYDROcodone/APAP 10/325 MG 1 TAB TAB PO PRN ×2 (08:34→17:45)
[2017-07-13] MEDS: FAMOTIDINE 20 MG TAB PO SCH ×2 (08:34→21:18)
[2017-07-13] MEDS: DIGOXIN 0.125 MG TAB PO SCH (08:34)
--- NOTE | 2017-07-13 10:15 | NUR ---
CALLED DR. STREET WITH PATIENT ORTHOSTATIC VITALS. PER DR. STREET GIVE PT 1 LITER NS BOLUS, WAIT 15 MIN AND DO ORTHOSTATIC VITALS AGAIN.
[2017-07-13] MEDS ORDERED: NACL 0.9% 1,000 ML IV SCH (10:30)
[2017-07-13] MEDS: INSULIN LISPRO 100 UNITS/ML VIAL SUBQ SCH (11:30)
[2017-07-13 11:52] LABS: ALBUMIN 2.6 g/dL (3.4-5.0); ASPARTATE AMINOTRANSFERASE 17 U/L (15-37); CARBON DIOXIDE 21.3 mmol/L (21-32); CHLORIDE 112 mmol/L (98-107); CREATININE 1.2 mg/dL (0.6-1.3); GLUCOSE 277 mg/dL (74-106); POTASSIUM 4.3 mmol/L (3.5-5.1); SODIUM SERUM 147 mmol/L (136-145); TOTAL BILIRUBIN 0.2 mg/dL (0.0-1.0); UREA NITROGEN, BLOOD 20 mg/dL (7-18)
--- NOTE | 2017-07-13 12:25 | NUR ---
CALLED DR. STREET WITH THE SECOND SET OF ORTHOSTATIC VITALS. PER DR. STREET REPEAT AGAIN AROUND 3 OR 4 PM.
--- NOTE | 2017-07-13 13:19 | NUR ---
SPOKE WITH LON FROM [facility], [phone]. THEY HAVE ACCEPTED THE PATIENT. SHE CAN GO TO ROOM 18A UPON DISCHARGE UNDER DR. STREET.
--- NOTE | 2017-07-13 15:09 | NUR ---
PHYSICAL THERAPY CO-SIGN The Physical Therapy Progress Notes documented by Wood Router have been reviewed. I CONCUR W/JET PILOT NOTE; TO CONT WITH MONITORING VS DURING ACTIVITY Reviewed/Co-Signed by: Ele Isabel, PT Documentation Done by: FILIBERTO ANDERSON PTA Addendum: 07/13/17 at 1510 by Ele Isabel PT Amended: Links added.
[2017-07-13] MEDS ORDERED: NACL 0.9% 500 ML IV SCH (17:15)
--- NOTE | 2017-07-13 19:23 | NUR ---
ENDORSED PT TO TRACER CLERK NURSE FOR CONTINUITY OF CARE. PT IS STABLE AT THIS TIME. NO SIGNS OF DISTRESS NOTED.
--- NOTE | 2017-07-13 19:25 | NUR ---
RECEIVED REPORT FROM DAY SHIFT NURSE. AAOX4. NO C/O PAIN. NO VAGINAL BLEEDING NOTED. IV TO RIGHT WRIST #24G, IV FLUIDS INFUSING WELL. DISCUSSED PLAN OF CARE, PT VERBALIZED UNDERSTANDING. WILL DO ORTHOSTATIC V/S ORDERED. SAFETY PRECAUTION IN PLACE. CALL LIGHT WITHIN REACH.
--- NOTE | 2017-07-13 20:00 | NUR ---
ORTHOSTATIC V/S DONE. SUPINE BP 99/45, SITTING 110/48, STANDING 100/46. NO C/O DIZZINESS. REPORTED V/S TO DR. STREET. ORDERED TO DO ORTHOSTATIC V/S X1 AT 0000HRS. IF SBP BELOW 90, CALL DR. STREET.
[2017-07-13] MEDS ORDERED: INSULIN LANTUS 100 UNITS/ML 10 ML VIAL SUBQ SCH (21:00)
--- NOTE | 2017-07-13 22:10 | NUR ---
LINEN CHANGED BY TIER LIFT TRUCK OPERATOR. NO C/O PAIN OR DISCOMFORT. NO VAGINAL BLEEDING NOTED. PT KEPT CLEAN, DRY AND COMFORTABLE. FALL PRECAUTION IN PLACE. CALL LIGHT WITHIN REACH.
[2017-07-14] VITALS: BP 100/45
--- NOTE | 2017-07-14 00:10 | NUR ---
PT REFUSED TO DO ORTHOSTATIC V/S. PT STATED THAT SHE WANTED TO SLEEP. V/S TAKEN IN SUPINE POSITION. NO ACUTE DISTRESS NOTED.
--- NOTE | 2017-07-14 03:10 | NUR ---
PT SLEEPING BUT EASILY AROUSABLE. RESP EQUAL AND UNLABORED. NO S/S OF PAIN OR DISCOMFORT.
[2017-07-14 04:00] VITALS: BP 112/59
--- NOTE | 2017-07-14 04:00 | NUR ---
PT REFUSED ORTHOSTATIC V/S. V/S TAKEN IN SUPINE POSITION, BP 112/59, HR 77, RR 18, O2 SAT 100% RA.
[2017-07-14] MEDS: POTASSIUM CHL 20 MEQ/ 1/2 NS 1,000 ML IV SCH (05:16)
[2017-07-14] MEDS: BLOOD GLUCOSE MONITORING 1 DEV DEV FS SCH ×3 (06:02→17:02)
--- NOTE | 2017-07-14 06:30 | NUR ---
BS CHECKED 104. NO INSULIN COVERAGE NEEDED.
--- NOTE | 2017-07-14 07:20 | NUR ---
ENDORSED PT TO DAY SHIFT NURSE. PT IN STABLE CONDITION.
--- NOTE | 2017-07-14 07:21 | NUR ---
RECEIVED REPORT FROM AN EMPLOYEE SPONSOR OR ADVOCATE AND NURSE AT BEDSIDE FOR CONTINUITY OF CARE. PT RESTING IN BED, PT IS AAOX4, AMBULATES WITH ASSIST, ON ROOM AIR, PT HAS IV ON HER RIGHT WRIST, PATENT, INTACT, ASYMPTOMATIC, AND FLUSHING WELL, NO S/S OF RESPIRATORY DISTRESS OR DISCOMFORT NOTED, DISCUSSED PLAN OF CARE WITH PT, PT VERBALIZED UNDERSTANDING, SAFETY PRECAUTIONS IN PLACE, CALL LIGHT IS WITHIN REACH, WILL CONTINUE TO MONITOR PATIENT.
[2017-07-14 07:53] LABS: BASOPHILS # (AUTO) 0.2 K/uL (0.00-0.22); EOSINOPHILS # (AUTO) 0.2 K/uL (0-0.4); HEMOGLOBIN 7.5 g/dL (12.0-16.0); MEAN CORPUSCULAR HEMOGLOBIN 31 pg (27-31)
[2017-07-14 08:00] VITALS: BP 115/75
[2017-07-14 08:01] LABS: BASOPHILS % (AUTO) 4.5 % (0.0-2.0); EOSINOPHILS % (AUTO) 3.6 % (0.0-4.0); HEMATOCRIT 22.9 % (36-48); LYMPHOCYTES # (AUTO) 1.1 K/uL (2.5-16.5); MEAN CORPUSCULAR HGB CONC 33 g/dL (33-37); MEAN CORPUSCULAR VOLUME 94.5 fL (80-94); MONOCYTES # (AUTO) 0.5 K/uL (0.8-1.0); MONOCYTES % (AUTO) 8.5 % (1.7-9.3); NEUTROPHILS # (AUTO) 3.3 K/uL (1.8-7.7); NEUTROPHILS % (AUTO) 62.4 % (42.2-75.2); PLATELET COUNT (AUTO) 174 K/uL (140-450); RED BLOOD CELL COUNT(AUTO) 2.42 MIL/uL (4.20-5.40); RED CELL DISTRIBUTION WIDTH 14.4 % (11.6-13.7); WHITE BLOOD COUNT (AUTO) 5.3 K/uL (4.8-10.8)
[2017-07-14 08:02] VITALS: BP 120/45
[2017-07-14 08:04] VITALS: BP 105/43
[2017-07-14] MEDS: FERROUS SULFATE 325 MG TABEC PO SCH ×3 (08:47→17:12)
[2017-07-14] MEDS: GABAPENTIN 300 MG CAP PO SCH (08:48)
[2017-07-14] MEDS: DIGOXIN 0.125 MG TAB PO SCH (08:48)
[2017-07-14] MEDS: ATORVASTATIN 20 MG TAB PO SCH (08:48)
[2017-07-14] MEDS: FAMOTIDINE 20 MG TAB PO SCH (08:48)
[2017-07-14] MEDS: HYDROcodone/APAP 10/325 MG 1 TAB TAB PO PRN (08:49)
[2017-07-14] MEDS: INSULIN LISPRO 100 UNITS/ML VIAL SUBQ SCH (11:30)
--- NOTE | 2017-07-14 11:30 | NUR ---
PHYSICAL THERAPY CO-SIGN The Physical Therapy Progress Notes documented by Pattern Room Attendant have been reviewed. I concur with the documentation of this DOT COMPLIANCE SPECIALIST. Plan: continue PT as per plan of care if she remains in this hospital. Reviewed/Co-Signed by: Yani Mariano,PT Documentation Done by: Rey Vera, DOT COMPLIANCE SPECIALIST Addendum: 07/14/17 at 1423 by Yani Mariano PT Amended: Links added.
[2017-07-14 12:00] VITALS: BP 99/48
[2017-07-14] MEDS: INSULIN LISPRO SLIDING SCALE 100 UNITS/ML VIAL SUBQ PRN (12:06)
--- NOTE | 2017-07-14 16:41 | NUR ---
REPORT GIVEN TO NURSE, LANA, AT [facility]. PATIENT WILL BE TRANSFERRED THERE BY [facility], ESTIMATED TIME 1730, TO ROOM 18. EARLY DINNER TRAY CALLED FOR PATIENT JUST IN CASE. VITAL SIGNS WNL. BLOOD SUGAR 183. PATIENT REFUSED INSULIN COVERAGE BECAUSE STATING THAT SHE "MAY NOT RECEIVED DINNER". PATIENT RESTING IN BED. NO SIGNS OF DISTRESS NOTED. PATIENT DENIES PAIN. SAFETY PRECAUTION IN PLACE, BED ON LOWEST SETTING, CALL LIGHT WITHIN REACH. WILL CONTINUE TO MONITOR PATIENT.
--- NOTE | 2017-07-14 17:15 | NUR ---
EARLY DINNER TRAY GIVEN TO PATIENT. PATIENT EATING DINNER. DISCHARGE INSTRUCTIONS AND EDUCATION GIVEN TO PATIENT. IV REMOVED, IV CATHETER INTACT, MINIMAL BLOOD NOTED. ID BANDS CUT. PATIENT CHANGED INTO TRANSFER GOWN. PATIENT WILL BE READY FOR TRANSFER TO [facility] AT 1730.
--- NOTE | 2017-07-14 17:55 | NUR ---
PATIENT'S BROTHER LEYLA CALLED, BACK. HE WAS INFORMED OF PATIENT'S TRANSFER TO [facility] TO ROOM #18. ADDRESS AND PHONE NUMBER OF FACILITY ALSO GIVEN. HE VERBALIZED UNDERSTANDING.
--- NOTE | 2017-07-14 18:10 | NUR ---
PATIENT WHEEL[facility] OFF [facility] F[facility]OR [facility] JUDSON. PATIENT TOOK ALL HER BELONGINGS WITH HER. PATIENT IN STABLE CONDITION.
== END 2017-07-14 18:05 | DRG 744 ==
LOC: MED 02:55 → MTU 06:08
PROVIDERS: ADMIT Family Medicine; ATTEND Family Medicine
PROC: 0UDB7ZZ Extraction of Endometrium, Via Natural or Artificial Opening (ICD-10-PCS; principal; 2017-07-11 21:00)
DX: N95.0 Postmenopausal bleeding (principal); R57.9 Shock, unspecified; I48.0 Paroxysmal atrial fibrillation; E44.1 Mild protein-calorie malnutrition; D62 Acute posthemorrhagic anemia; E86.0 Dehydration; E11.9 Type 2 diabetes mellitus without complications; E78.5 Hyperlipidemia, unspecified; R27.0 Ataxia, unspecified; R79.89 Other specified abnormal findings of blood chemistry; S00.03XA Contusion of scalp, initial encounter; R29.6 Repeated falls; W19.XXXA Unspecified fall, initial encounter; I10 Essential (primary) hypertension; W01.0XXA Fall on same level from slipping, tripping and stumbling without subsequent striking against object, initial encounter; Z79.01 Long term (current) use of anticoagulants; Y93.89 Activity, other specified; Y92.129 Unspecified place in nursing home as the place of occurrence of the external cause; Y99.8 Other external cause status; Z79.899 Other long term (current) drug therapy; Z68.27 Body mass index [BMI] 27.0-27.9, adult
CPT/HCPCS: 36415; 70450; 71045; 72125; 76856; 80048; 80053; 80162; 81001; 82948; 84484; 85025; 85610; 85730; 86886; 86900; 86901; 87081; 87086; 93005; 96360; 97110; 97116; 97140; 97530; 99285; C1758; J1160; J1815; J2270; J2704; J3480; J7030; J7120; Q0092

== ENCOUNTER 2018-02-11 11:06 | Inpatient (IN) | payer OTHER ==
[~2018-02-11] VITALS: Ht 167.6 cm; Wt 70.3 kg
[~2018-02-11 11:06] MED LIST changes: -GEMF600T8 PO; -LIRA6SOL SC; -[UNRECOGNIZED DRUG - CODE] PO
[2018-02-11 11:08] VITALS: BP 103/36
--- NOTE | 2018-02-11 11:08 | NUR ---
BIBA C/O LOW HGB 7, [place] [facility]. PT DENIES N/V; SKIN IS INTACT, PINK/WARM/DRY; AAOX4, PERRL, WITH EVEN AND STEADY GAIT; LUNGS CLEAR BL, BREATHING UNLABORED; HR EVEN AND REGULAR, BL PERIPHERAL PULSES PRESENT; BS ACTIVE X4, NO TENDERNESS TO PALPATION, PT DENIES ANY FEVER, CP, SOB, OR COUGH AT THIS TIME; PT STATES 0/10 PAIN AT THIS TIME; VSS; PATIENT POSITIONED FOR COMFORT; HOB ELEVATED; BEDRAILS UP X2; BED DOWN. HX; DM, CANCER, HEART PROBLEMS, ANEMIA, HTN RX; MED LIST PAPER
--- NOTE | 2018-02-11 11:08 | NUR ---
Note undone in EDM - 02/11/18 at 1122 by MEDFL BIBA C/O LOW HGB 7, [facility]. PT DENIES N/V; SKIN IS INTACT, PINK/WARM/DRY; AAOX4, PERRL, WITH EVEN AND STEADY GAIT; LUNGS CLEAR BL, BREATHING UNLABORED; HR EVEN AND REGULAR, BL PERIPHERAL PULSES PRESENT; BS ACTIVE X4, NO TENDERNESS TO PALPATION, PT DENIES ANY FEVER, CP, SOB, OR COUGH AT THIS TIME; PT STATES 0/10 PAIN AT THIS TIME; VSS; PATIENT POSITIONED FOR COMFORT; HOB ELEVATED; BEDRAILS UP X2; BED DOWN. HX; DM, CANCER, HEART PROBLEMS RX; MED LIST PAPER
--- NOTE | 2018-02-11 11:35 | NUR ---
LAB AT BEDSIDE
--- NOTE | 2018-02-11 11:48 | NUR ---
RAD AT BEDSIDE
[2018-02-11] MEDS ORDERED: LORA-476 PO (11:53)
[2018-02-11] MEDS ORDERED: FERR-15 PO (11:53)
[2018-02-11] MEDS ORDERED: COM5 PO (11:53)
[2018-02-11] MEDS ORDERED: HYDR-5122 PO (11:53)
[2018-02-11] MEDS ORDERED: MULT-2171 PO (11:53)
[2018-02-11] MEDS ORDERED: DIGO0.122 PO (11:53)
[2018-02-11] MEDS ORDERED: ACET-2619 PO (11:53)
[2018-02-11 12:17] LABS: RED BLOOD CELL COUNT(AUTO) 1.98 MIL/uL (4.20-5.40); WHITE BLOOD COUNT (AUTO) 5.6 K/uL (4.8-10.8)
[2018-02-11 12:20] LABS: HEMATOCRIT 19.9 % (36-48); HEMOGLOBIN 6.6 g/dL (12.0-16.0)
[2018-02-11 12:21] LABS: MEAN CORPUSCULAR HEMOGLOBIN 33 pg (27-31); MEAN CORPUSCULAR HGB CONC 33 g/dL (33-37); MEAN CORPUSCULAR VOLUME 100.4 fL (80-94); NEUTROPHILS % (AUTO) 83.8 % (42.2-75.2); PLATELET COUNT (AUTO) 296 K/uL (140-450); RED CELL DISTRIBUTION WIDTH 16.3 % (11.6-13.7)
[2018-02-11 12:22] LABS: BASOPHILS % (AUTO) 0.3 % (0.0-2.0); EOSINOPHILS # (AUTO) 0.3 K/uL (0-0.4); EOSINOPHILS % (AUTO) 4.5 % (0.0-4.0); LYMPHOCYTES # (AUTO) 0.3 K/uL (2.5-16.5); LYMPHOCYTES % (AUTO) 5.3 % (20.5-51.1); MONOCYTES # (AUTO) 0.3 K/uL (0.8-1.0); MONOCYTES % (AUTO) 6.1 % (1.7-9.3); NEUTROPHILS # (AUTO) 4.7 K/uL (1.8-7.7); PROTHROMBIN TIME 1.1 secs (10.8-13.4)
[2018-02-11 12:45] LABS: ALBUMIN 1.4 g/dL (3.4-5.0); ANION GAP 13.7 (8-16); ASPARTATE AMINOTRANSFERASE 19 U/L (15-37); CARBON DIOXIDE 21.8 mmol/L (21-32); CHLORIDE 107 mmol/L (98-107); CREATININE 0.7 mg/dL (0.6-1.3); GLUCOSE 164 mg/dL (74-106); POTASSIUM 3.5 mmol/L (3.5-5.1); SODIUM SERUM 139 mmol/L (136-145); TOTAL BILIRUBIN 0.2 mg/dL (0.0-1.0); UREA NITROGEN, BLOOD 14 mg/dL (7-18)
--- NOTE | 2018-02-11 13:39 | NUR ---
Patient will be admitted to care of DR EDOUARD. Admited to MED SURG. Will go to room 119-A. Belongings list completed. Report to YAZAN/ JAMAR BOUCHER.
--- NOTE | 2018-02-11 13:45 | NUR ---
RECEIVED PT ON UNIT VIA GURNEY, PT AMBULATES WITH ASSIST, AAOX2, ON O2 2L NC, IV ON THE LEFT HAND, PATENT, INTACT, FLUSHING WELL, NO S/S OF RESPIRATORY DISTRESS OR DISCOMFORT NOTED, DISCUSSED PLAN OF CARE WITH PT, PT VERBALIZED UNDERSTANDING, ORIENTED PT TO ROOM, SAFETY/FALL PRECAUTIONS ARE IN PLACE, CALL LIGHT IS WITHIN REACH, WILL CONTINUE TO MONITOR.
--- NOTE | 2018-02-11 14:15 | NUR ---
1 UNIT OF BLOOD STARTED AT THIS TIME. PT TOLERATING WELL, WILL CONTINUE TO MONITOR.
--- NOTE | 2018-02-11 14:30 | NUR ---
PT TOLERATING BLOOD TRANSFUSION, NO S/S OF ADVERSE REACTION, CALL LIGHT IS WITHIN REACH, WILL CONTINUE TO MONITOR.
--- NOTE | 2018-02-11 15:00 | NUR ---
PT SLEEPING COMFORTABLY IN BED, ON O2 2L NC, BLOOD TRANSFUSION RUNNING, CALL LIGHT WITHIN REACH.
[2018-02-11 16:00] VITALS: BP 104/93
--- NOTE | 2018-02-11 16:00 | NUR ---
PT IS RESTING IN BED, SEMI FOWLERS POSITION, ON O2 2L NC, BLOOD TRANSFUSION IS RUNNING, PT TOLERATING TRANSFUSION WELL, NO S/S OF ADVERSE REACTION, CALL LIGHT IS WITHIN REACH.
--- NOTE | 2018-02-11 17:12 | NUR ---
1 UNIT OF PRBC COMPLETED AT THIS TIME. PT TOLERATED THE TRANSFUSION WELL, NO ADVERSE REACTIONS. CALL LIGHT IS WITHIN REACH.
[2018-02-11] MEDS ORDERED: LORazepam 1 MG TAB PO PRN (17:40)
[2018-02-11] MEDS ORDERED: HYDROcodone/APAP 5/325 MG 1 TAB TAB PO PRN (17:40)
[2018-02-11] MEDS ORDERED: ACETAMINOPHEN 325 MG TAB PO PRN (17:40)
[2018-02-11] MEDS ORDERED: DEXTROSE 50% 50 ML SYR IVP PRN (17:40)
[2018-02-11] MEDS: NACL 0.45% 1,000 ML IV SCH (18:29)
--- NOTE | 2018-02-11 18:38 | NUR ---
PT SLEEPING COMFORTABLY IN BED ON O2 2L NC, CALL LIGHT WITHIN REACH. ALL NEEDS MET AT THIS TIME.
--- NOTE | 2018-02-11 19:23 | NUR ---
ENDORSED PATIENT TO ENGINEERING DOCUMENT CONTROL CLERK NURSE FOR CONTINUITY OF CARE. PATIENT IN STABLE CONDITION. ALL NEEDS MET AT THIS TIME.
--- NOTE | 2018-02-11 19:25 | NUR ---
RECEIVED PATIENT AWAKE LYING ON BED WITH NC 2L O2 IN PLACE. EXPLAINED PLAN OF CARE TO PATIENT. TOLD PATIENT TO CALL FOR HELP USING THE CALL LIGHTS. FALL PRECAUTION APPLIED. CALL LIIGHT WITHIN REACH. WILL CONTINUE TO MONITOR.
[2018-02-11 20:00] VITALS: BP 111/46
[2018-02-11] MEDS: GABAPENTIN 300 MG CAP PO SCH (20:21)
[2018-02-11] MEDS: BLOOD GLUCOSE MONITORING 1 DEV DEV FS SCH (20:22)
--- NOTE | 2018-02-11 21:00 | NUR ---
V/S TAKEN AND RECORDED. SCHEDULE MEDICATION GIVEN. BLOOD TRANSFUSION GIVEN AND TOLERATED WELL. WILL CONTINUE TO MONITOR.
--- NOTE | 2018-02-11 21:10 | NUR ---
1 UNIT OF PRBC RUNNING AT THIS TIME. PATIENT TOLERATED WELL. NO S/S OF REACTION NOTED AT THIS TIME. WILL CONTINUE TO MONITOR.
[2018-02-12] VITALS: BP 110/46
--- NOTE | 2018-02-12 | NUR ---
V/S TAKEN AND RECORDED. ON GOING BLOOD TRANSFUSION. PATIENT TOLERATED WELL. WILL CONTINUE TO MONITOR.
--- NOTE | 2018-02-12 01:30 | NUR ---
3RD UNIT OF PRBC STARTED AT THIS TIME. V/S TAKEN AND RECORDED BASELINE. WILL CONTINUE TO MONITOR.
--- NOTE | 2018-02-12 02:00 | NUR ---
CHECKED PATIENT ONGOING BLOOD TRANSFUSION #3 1 UNIT PRBC. PATIENT TOLERATED WELL. NO ALLERGIC REACTION NOTED. WILL CONTINUE TO MONITOR.
--- NOTE | 2018-02-12 04:30 | NUR ---
BLOOD TRANSFUSION DONE. PATIENT TOLERATED WELL. V/S TAKEN AND RECORDED. NO S/S OF DISTRESS NOTED. WILL CONTINUE TO MONITOR.
--- NOTE | 2018-02-12 05:00 | NUR ---
AM CARE DONE. PLACE PATIENT IN COMFORTABLE POSITION. SD [address] CALL LIGHT WITHIN REACH. NO S/S OF DISTRESS NOTED. WILL CONTINUE TO MONITOR.
[2018-02-12] MEDS: BLOOD GLUCOSE MONITORING 1 DEV DEV FS SCH ×4 (06:35→21:03)
--- NOTE | 2018-02-12 07:12 | NUR ---
GAVE REPORT TO AM SHIFT RN AT BEDSIDE FOR CONTINUITY OF CARE. PATIENT IN STABLE CONDITION.
--- NOTE | 2018-02-12 07:15 | NUR ---
RECEIVED REPORT FROM BATCH RECORDS CLERK NURSE, PT IS SLEEPING IN BED, SEMI FOWLERS POSITION, PT IS EASILY AWAKEN, PT IS AAOX3, PT AMBULATES WITH ASSIST, ON O2 2L NC, IV ON THE LEFT HAND, PATENT, INTACT, FLUSHING WELL, PT HAS SACRAL REDNESS, NO S/S OF RESPIRATORY DISTRESS OR DISCOMFORT NOTED, DISCUSSED PLAN OF CARE WITH PT, PT VERBALIZED UNDERSTANDING, SAFETY/FALL PRECAUTIONS ARE IN PLACE, CALL LIGHT IS WITHIN REACH, WILL CONTINUE TO MONITOR. Addendum: 02/12/18 at 1035 by Teetee Kingston RN PT HAS SMALL SKIN TEAR ON SACRAL AREA.
[2018-02-12 08:04] LABS: BASOPHILS % (AUTO) 0.3 % (0.0-2.0); EOSINOPHILS # (AUTO) 0.6 K/uL (0-0.4); EOSINOPHILS % (AUTO) 13.3 % (0.0-4.0); HEMATOCRIT 30.7 % (36-48); HEMOGLOBIN 10.2 g/dL (12.0-16.0); LYMPHOCYTES # (AUTO) 0.2 K/uL (2.5-16.5); LYMPHOCYTES % (AUTO) 5.1 % (20.5-51.1); MEAN CORPUSCULAR HEMOGLOBIN 30 pg (27-31); MEAN CORPUSCULAR HGB CONC 33 g/dL (33-37); MEAN CORPUSCULAR VOLUME 91.2 fL (80-94); MONOCYTES # (AUTO) 0.4 K/uL (0.8-1.0); MONOCYTES % (AUTO) 8.4 % (1.7-9.3); NEUTROPHILS # (AUTO) 3.5 K/uL (1.8-7.7); NEUTROPHILS % (AUTO) 72.9 % (42.2-75.2); PLATELET COUNT (AUTO) 241 K/uL (140-450); RED BLOOD CELL COUNT(AUTO) 3.37 MIL/uL (4.20-5.40); RED CELL DISTRIBUTION WIDTH 22.7 % (11.6-13.7); WHITE BLOOD COUNT (AUTO) 4.8 K/uL (4.8-10.8)
[2018-02-12 08:16] LABS: ANION GAP 11.7 (8-16); CARBON DIOXIDE 23.7 mmol/L (21-32); CHLORIDE 110 mmol/L (98-107); CREATININE 0.6 mg/dL (0.6-1.3); GLUCOSE 89 mg/dL (74-106); POTASSIUM 3.4 mmol/L (3.5-5.1); SODIUM SERUM 142 mmol/L (136-145); UREA NITROGEN, BLOOD 10 mg/dL (7-18)
--- NOTE | 2018-02-12 08:40 | NUR ---
PATIENT HAS BEEN SCREENED AND CATEGORIZED MODERATE NUTRITION RISK. PATIENT WILL BE SEEN WITHIN 3-5 DAYS OF ADMISSION. 02/14/18 02/16/[address]
--- NOTE | 2018-02-12 09:15 | NUR ---
STOOL SAMPLE FOR C.DIFF COLLECTED AND SENT TO LAB.
[2018-02-12] MEDS: DIGOXIN 0.125 MG TAB PO SCH (09:45)
[2018-02-12] MEDS: GABAPENTIN 300 MG CAP PO SCH ×2 (09:45→20:54)
[2018-02-12] MEDS: metroNIDAZOLE 250 MG TAB PO SCH ×3 (09:45→17:05)
--- NOTE | 2018-02-12 10:06 | NUR ---
Psychology Department Chair Note: I requested Karol from Admitting Dept to change patient's home address and phone number listed on face sheet, I provided her with address and phone number [phone] [place] [address] , case fitter Tri made aware.
[2018-02-12] MEDS ORDERED: Z-GUARD PASTE TP SCH (10:29)
--- NOTE | 2018-02-12 11:53 | NUR ---
CALLED DR. STREET TO LET HIM KNOW THE PATIENT'S POTASSIUM WAS 3.4, PER DR. STREET GIVE 40 MEQ, PO, ONCE. I ALSO LET HIM KNOW THE SPECIMEN FOR C.DIFF WAS COLLECTED AND THAT THE PATIENT HAD A SMALL SKIN TEAR ON HER SACRAL AREA. PER DR. STREET LET DR. LITTLE KNOW SHE IS STILL HAVING DIARRHEA.
[2018-02-12 12:00] VITALS: BP 112/54
[2018-02-12] MEDS ORDERED: POTASSIUM CHLORIDE 10 MEQ TABER PO SCH (12:30)
[2018-02-12] MEDS: INSULIN LISPRO SLIDING SCALE 100 UNITS/ML VIAL SUBQ PRN ×3 (12:38→21:07)
--- NOTE | 2018-02-12 13:00 | NUR ---
PT HAS LARGE LOOSE, YELLOW/GREEN BOWL MOVEMENT. PT CLEANED AND CHANGED. NEW OPTIFOAM DRESSING PLACE ON SACRUM, Z-GUARD CREAM APPLIED. ALL NEEDS MET AT THIS TIME, CALL LIGHT IS WITHIN REACH.
[2018-02-12 13:11] LABS: FOLIC ACID 6.8 ng/mL (>3.0)
[2018-02-12 16:00] VITALS: BP 157/69
[2018-02-12] MEDS: NACL 0.45% 1,000 ML IV SCH (17:40)
--- NOTE | 2018-02-12 19:22 | NUR ---
ENDORSED PATIENT TO HIGH RISK OB NURSE FOR CONTINUITY OF CARE. PATIENT IN STABLE CONDITION. ALL NEEDS MET AT THIS TIME.
--- NOTE | 2018-02-12 19:23 | NUR ---
RECEIVED BEDSIDE REPORT FROM DAY SHIFT NURSE YAZAN RN, PT STABLE, NO DISTRESS NOTED, IV TO R HAND 20G PATENT, INTACT, INFUSING 1/2NS @ 40ML/HR, PT ON 2LPM O2 VIA NC, NO SOB, DRESSING INTACT, PT STILL DOING BM, WILL CHANGE DRESSING WHEN SOILED, INITIAL ASSESSMENT DONE, ALL SAFETY PRECAUTION MET, CALL LIGHT WITHIN REACH, WILL CONTINUE TO MONITOR.
[2018-02-12] MEDS: MUPIROCIN CA NASAL 2% 1GM TUBE NS SCH (20:54)
[2018-02-12] MEDS: CHLORHEXADINE GLUC 2% CLOTH TP SCH (20:54)
--- NOTE | 2018-02-12 21:07 | NUR ---
DUE MEDICATION ADMINISTERED, PT TOLERATED WELL, NO DISTRESS NOTED, CALL LIGHT WITHIN REACH, WILL CONTINUE TO MONITOR.
[2018-02-13] VITALS: BP 127/53
--- NOTE | 2018-02-13 00:10 | NUR ---
PT SLEEPING, NO DISTRESS NOTED, V/S TAKEN WNL, CALL LIGHT WITHIN REACH, WILL CONTINUE TO MONITOR.
[2018-02-13] MEDS: BLOOD GLUCOSE MONITORING 1 DEV DEV FS SCH ×4 (06:16→20:44)
--- NOTE | 2018-02-13 07:25 | NUR ---
ENDORSED PT TO DAY SHIFT NURSE SITAL RN, PT STABLE, NO DISTRESS NOTED, CALL LIGHT WITHIN REACH
[2018-02-13 08:00] VITALS: BP 118/49
[2018-02-13 08:21] LABS: BASOPHILS % (AUTO) 0.2 % (0.0-2.0); EOSINOPHILS # (AUTO) 0.4 K/uL (0-0.4); EOSINOPHILS % (AUTO) 8.5 % (0.0-4.0); HEMATOCRIT 30.5 % (36-48); HEMOGLOBIN 10.2 g/dL (12.0-16.0); LYMPHOCYTES # (AUTO) 0.3 K/uL (2.5-16.5); LYMPHOCYTES % (AUTO) 6.4 % (20.5-51.1); MEAN CORPUSCULAR HEMOGLOBIN 30 pg (27-31); MEAN CORPUSCULAR HGB CONC 33 g/dL (33-37); MONOCYTES # (AUTO) 0.4 K/uL (0.8-1.0); NEUTROPHILS # (AUTO) 3.8 K/uL (1.8-7.7); NEUTROPHILS % (AUTO) 76.9 % (42.2-75.2); PLATELET COUNT (AUTO) 244 K/uL (140-450); RED BLOOD CELL COUNT(AUTO) 3.36 MIL/uL (4.20-5.40); RED CELL DISTRIBUTION WIDTH 22.7 % (11.6-13.7)
--- NOTE | 2018-02-13 09:00 | NUR ---
ADMINISTERED MEDS TO PT ORDERED. TOLERATED WELL. PT CHANGED AND REPOSITIONED.NO SIGN OF DISTRESS NOTED. ALL SAFETY MEASURE IN PLACE. WILL CONTINUE TO MONITOR PT.
[2018-02-13] MEDS: GABAPENTIN 300 MG CAP PO SCH ×2 (09:16→20:45)
[2018-02-13] MEDS: metroNIDAZOLE 250 MG TAB PO SCH (09:16)
[2018-02-13] MEDS: DIGOXIN 0.125 MG TAB PO SCH (09:16)
[2018-02-13 09:45] LABS: ANION GAP 11.9 (8-16); CARBON DIOXIDE 22.3 mmol/L (21-32); CHLORIDE 111 mmol/L (98-107); CREATININE 0.6 mg/dL (0.6-1.3); GLUCOSE 158 mg/dL (74-106); POTASSIUM 4.2 mmol/L (3.5-5.1); SODIUM SERUM 141 mmol/L (136-145); UREA NITROGEN, BLOOD 7 mg/dL (7-18)
--- NOTE | 2018-02-13 12:30 | NUR ---
WOUND CARE EVALUATION NOTES: REASON FOR EVALUATION: LEFT BREAST SURGICAL WOUND SKIN ASSESSMENT DONE ON THIS 72Y/O FEMALE PATIENT FROM [facility] TO [facility], WITH INITIAL DIAGNOSIS OF ANEMIA. PAST HX INCLUDES HTN, ANEMIA AND ENDOMETRIAL CA. FOR LAST 2-4 WEEKS PT. HAS DIARRHEA 2/2 RADIATION THERAPY. ALL ABOVE INFORMATION WAS OBTAINED FROM THE ADMISSION H&P. LABS ARE WBC 8.4, H/H 10.2/30.5, GLUCOSE 158, AND ALBUMIN 1.4. PATIENT IS AWAKE, ORIENTED TO PERSON, PLACE, DATE AND TIME. SKIN WARM TO TOUCH WNL, TOENAILS ARE SHORT AND THICKENED, BILATERAL PEDAL PULSES PRESENT AND NORMAL. LEFT ARM PERIPHERAL IV PATENT AND INTACT. ON ROOM AIR. LBM X1 DURING ASSESSMENT. PLAN OF CARE AND PRESSURE PREVENTIVE MEASURES DISCUSSED WITH PRIMARY RN AND PT. PT ABLE TO VERBALIZE UNDERSTANDING. CLARIFICATION: NO SKIN TEAR ON SACRALCOCCYX AREA INTEGUMENTARY: -INCONTINENT ASSOCIATED DERMATITIS TO R/L INNER BUTTOCKS EXTENDED TO ELLIOTT-ANAL WITH MULTIPLE PIN POINTS SKIN EROSIONS, MOIST NO ODOR. ELLIOTT WOUND SKIN REDNESS -ELLIOTT-ANAL MULTIPLE EXTERNAL HEMORRHOIDS, SKIN INTACT. -SACRALCOCCYX SKIN INTACT, BLANCHABLE REDNESS 1X1 CM FROM IAD RECOMMENDATIONS: -CLEANSE R/L INNER BUTTOCKS EXTENDED TO ELLIOTT-ANAL WITH MILD SOAP AND WATER, PAT DRY, APPLY Z GUARD BIDWC AND PRN WITH SOILING. LEAVE OPEN TO AIR -TURN AND REPOSITION PATIENT Q 2H -ASSESS AND MONITOR SKIN CONDITION DURING POSITION CHANGE, PLEASE PAY PARTICULAR ATTENTION TO SACRALCOCCYX -OFFLOAD BILATERAL HEELS BY PLACING PILLOWS UNDER CALVES AT ALL TIMES, UNLESS OTHERWISE CONTRAINDICATED -PRESSURE REDISTRIBUTION SURFACE THERAPY -KEEP SKIN CLEAN AND DRY AT ALL TIMES. RECOMMENDATIONS DISCUSSED WITH PRIMARY RN AND RESIDENT PHYSICIAN PLEASE CONTACT WOUND CARE NURSE FOR ANY QUESTIONS AND CHANGES IN SKIN CONDITION.
--- NOTE | 2018-02-13 12:36 | NUR ---
PT SEEN BY DR MIGUEL LITTLE,STATES PT FOR CLINOSCOPY TOMORROW PT STILL HAVING DIARRHEA. LAB STOOL CULTURE NEGATIVE FOR C.DIFF. ALL SAFETY MEASURE IN PLACE. WILL CONTINUE TO MONITOR PT.
[2018-02-13] MEDS: SENNA 8.6 MG TAB PO SCH ×2 (12:50→17:30)
[2018-02-13] MEDS: INSULIN LISPRO SLIDING SCALE 100 UNITS/ML VIAL SUBQ PRN ×3 (12:53→20:53)
--- NOTE | 2018-02-13 12:55 | NUR ---
Nurse Practical Note: Per Veronica from [facility] , patient is on a 7 day bed hold and is one of their salvage determiner patients. She stated patient is self responsible. I reviewed patient's POLST, it indicates Too Topete discussed POLST with patient.
[2018-02-13] MEDS ORDERED: MAGNESIUM CITRATE 300 ML BTL PO SCH (13:00)
--- NOTE | 2018-02-13 13:30 | NUR ---
PT MEDS ORDERED ORDERED. PT TO HAVE COLONOSCOPY IN TOMORROW PER DR LITTLE, WILL BE NPO SINCE MIDNIGHT. PT AOX4. ABLE TO MAKE HER NEEDS KNOWN. STATES CAN SIGN THE CONSENT FORM. ALL SIGN OF DISTRESS NOTED . WILL CONTINUE TO MONITOR PT.
--- NOTE | 2018-02-13 14:38 | NUR ---
CALL BACK FROM DR [address] REVIEWED CXR IMPRESSION DATED 02/11/2018 AND TO THE FOLLOWING PATIENT ASSESSMENT LOC AWAKE AND ALERT NO SOB NOTED BREATH SOUNDS DIMINISHED BILATERAL SATURATION 100% ON SUPPLEMENTAL OXYGEN AT 2 LPM VIA NC NEW ORDERS: HHN Q4PRN FOR SOB/WHEEZE; REPEAT CXR 02/14 AM
[2018-02-13] MEDS ORDERED: ALBUTEROL SULFATE/IPRATROPIU 3 ML SOL IH PRN (14:50)
[2018-02-13 16:00] VITALS: BP 121/57
--- NOTE | 2018-02-13 17:00 | NUR ---
ADMINISTERED MEDS ORDERED TO PT. BS 185. ADMINISTERED 2 UNITS OF INSULIN. TOLERATED WELL. NO SIGN OF DISTRESS. OBTAINED CONSENT. PT AOX4, ABLE TO SIGN CONSENT AND AWARE OF COLONOSCOPY FOR TOMORROW. ALL SAFETY MEASURE IN PLACE WILL CONTINUE TO MONITOR PT.
[2018-02-13] MEDS: NACL 0.45% 1,000 ML IV SCH (17:40)
--- NOTE | 2018-02-13 19:10 | NUR ---
ENDORSED PT TO PM NURSE AT BEDSIDE. PT IN STABLE CONDITION.
--- NOTE | 2018-02-13 19:11 | NUR ---
RECEIVED BEDSIDE REPORT FROM DAY SHIFT NURSE SITAL RN, PT STABLE, NO DISTRESS NOTED, IV TO L HAND 20G PATENT, INTACT, INFUSING 1/2 NS@10ML/HR, INFUSING WELL, PT ON 2LPM O2 VIA NC, NO SOB NOTED, DRESSING TO THE SACRAL AREA CLEAN DRY AND INTACT, INITIAL ASSESSMENT DONE, ALL SAFETY PRECAUTION MET, CALL LIGHT WITHIN REACH, WILL CONTINUE TO MONITOR.
[2018-02-13] MEDS: LACTULOSE 20 GM/30 ML UDC PO SCH (20:45)
[2018-02-13] MEDS: MUPIROCIN CA NASAL 2% 1GM TUBE NS SCH (20:45)
[2018-02-13] MEDS: POLYETHYLENE GLYCOL 17 GM/PKT PO SCH (20:46)
[2018-02-13] MEDS: CHLORHEXADINE GLUC 2% CLOTH TP SCH (20:55)
--- NOTE | 2018-02-13 20:55 | NUR ---
DUE MEDICATION ADMINISTERED, PT TOLERATED WELL, NO DISTRESS NOTED, CALL LIGHT WITHIN REACH, WILL CONTINUE TO MONITOR.
--- NOTE | 2018-02-13 21:40 | NUR ---
CHANGED PT, PT DID BM, SOFT, BROWN, PT TOLERATED WELL, NO DISTRESS NOTED, CALL LIGHT WITHIN REACH, WILL CONTINUE TO MONITOR.
[2018-02-14] VITALS: BP 106/41
--- NOTE | 2018-02-14 00:18 | NUR ---
NOTED IV TO L HAND 20G LEAKING, NEW IV INSERTED TO L WRIST 24G, PATENT, INTACT, L HAND 20G IV TAKEN OFF, CATH INTACT, PT TOLERATED WELL, NO DISTRESS NOTED, CALL LIGHT WITHIN REACH, WILL CONTINUE TO MONITOR.
[2018-02-14] MEDS ORDERED: INFLUENZA VIRUS VACCINE QUAD 0.5 ML SYR IMVAC PRN (00:35)
--- NOTE | 2018-02-14 02:06 | NUR ---
CHANGED PT, PT DID BM, LIQUID BROWN COLORED, PT TOLERATED WELL, NO DISTRESS NOTED, CALL LIGHT WITHIN REACH, WILL CONTINUE TO MONITOR.
--- NOTE | 2018-02-14 04:07 | NUR ---
CHECKED ON PT, PT SLEEPING, NO DISTRESS NOTED, CALL LIGHT WITHIN REACH, WILL CONTINUE TO MONITOR.
[2018-02-14] MEDS: BLOOD GLUCOSE MONITORING 1 DEV DEV FS SCH ×4 (06:43→21:02)
--- NOTE | 2018-02-14 06:43 | NUR ---
PT BLOOD SUGAR 159, NO INSULIN GIVEN, PT NPO. PT RESTING, NO DISTRESS NOTED, CALL LGIHT WITHIN REACH, WILL CONTINUE TO MONITOR.
--- NOTE | 2018-02-14 07:20 | NUR ---
ENDORSED PT TO DAY SHIFT NURSE SITAL RN, PT STABLE, NO DISTRESS NOTED, CALL LIGHT WITHIN REACH.
--- NOTE | 2018-02-14 07:22 | NUR ---
RECEIVED REPORT FROM PM NURSE AT BEDSIDE. PT LYING ON HER BED. CASH PROCESSING SPECIALIST CHANGING PT AT THIS TIME. HAS IV ON LFT WRIST, 24 G. HAS IVF 0.45 NS INFUSING AT 60 ML/HR. IV SITE PATENT AND INTACT. NO SIGN OF DISTRESS NOTED. PLACED CALL LIGHT WITHIN PT REACH. UPDATED BOARD. PT ON NPO SINCE MIDNIGHT FOR COLONOSCOPY TODAY. CONSENT OBTAINED. PT HAS STABLE VS. T 98.1.WILL CONTINUE TO MONITOR PT.
[2018-02-14 08:00] VITALS: BP 132/56
[2018-02-14] MEDS: LACTULOSE 20 GM/30 ML UDC PO SCH (09:10)
[2018-02-14] MEDS: POLYETHYLENE GLYCOL 17 GM/PKT PO SCH (09:11)
[2018-02-14] MEDS: SENNA 8.6 MG TAB PO SCH ×2 (09:11→13:53)
[2018-02-14] MEDS: DIGOXIN 0.125 MG TAB PO SCH (09:11)
[2018-02-14] MEDS: GABAPENTIN 300 MG CAP PO SCH ×2 (09:11→21:33)
[2018-02-14] MEDS: POTASSIUM CHLORIDE 20% 40 MEQ/15 ML UDC GT SCH (09:12)
--- NOTE | 2018-02-14 09:30 | NUR ---
ADMINISTERED MEDS TO PT ORDERED. PT TO HAVE COLONOSCOPY TODAY. PT AWARE. HAS BEEN ON NPO SINCE MIDNIGHT. PT TOLERATED MEDS WELL. NO SIGN OF DISTRESS NOTED. PLACED CALL LIGHT WITHIN PT REACH .WILL CONTINUE TO MONITOR PT.
[2018-02-14] MEDS: NACL 0.45% 1,000 ML IV SCH (10:20)
--- NOTE | 2018-02-14 11:30 | NUR ---
CHECKED ON PT. BS 178 NOTED. WILL HOLD INSULIN SINCE PT NPO. CHARGE NURSE AWARE. PER WOUND CARE TECHNICIAN, PT HAS WATERY WITH SMALL STOOL CHUNKS IN IT. WILL CONTINUE TO KEEP NPO . ALL SAFETY MEASURE IN PLACE. WILL CONTINUE TO MONITOR PT.
[2018-02-14] MEDS ORDERED: diphenhydrAMINE 50 MG/ML VIAL ONE (14:06)
[2018-02-14] MEDS ORDERED: MIDAZOLAM 2 MG/2 ML VIAL ONE (14:06)
[2018-02-14] MEDS ORDERED: fentaNYL 0.05 MG/ML VIAL ONE (14:06)
[2018-02-14] MEDS ORDERED: MIDAZOLAM 2 MG/2 ML VIAL IVP SCH (16:00)
[2018-02-14] MEDS ORDERED: fentaNYL 0.05 MG/ML VIAL IVP SCH (16:00)
--- NOTE | 2018-02-14 16:00 | NUR ---
PT BACK FROM OR. PER OR NURSE, PT HAS RECTAL ULCER, HAS DIVERTICULOSIS. VS NORMAL IN PT. PT ON REGULAR DIET. ALL SAFETY MEASURE IN PLACE, ASKED IF SHE WANTS TO EAT ANYTHING, STATES WILL DRINK HAVE JUICE AT THE BEDSIDE. WILL HAVE JUICE AT BEDSIDE. ALL SAFETY MEASURE IN PLACE. WILL CONTINUE TO MONITOR PT.
[2018-02-14 16:20] VITALS: BP 126/54
--- NOTE | 2018-02-14 16:30 | NUR ---
DR PERRY CALLED, STATES THAT HE WAS VISITED BY DR. MIGUEL LITTLE AT HIS OFFICE. STATES THAT TP CAN BE DISCHARGED TO [facility], WILL SEE PT AT [facility] LATER. DR STREET STATES THAT UPON DISCHARGE, PT CAN BE ON ALL MEDS THAT PT WAS AT [facility] BUT TO HOLD LANTUS. WILL SEE HER AND FURTHER EVALUATE HER. 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 TALKED TO DON OF [facility], STATES SHE HAS NO ISOLATION ROOM TODAY, CAN ARRANGE TOMORROW. INFORMED HER THAT PT NEEDS TO BE KEPT ON ISOLATION FOR 3 MORE DAYS. ASKING IF SHE CAN BE INFORMED LATER AFTER TALKING TO DR STREET SHE HAS TO CHECK AVAILABILITY OF ISOLATION ROOM FOR TODAY. CHARGE NURSE AWARE.
--- NOTE | 2018-02-14 17:00 | NUR ---
CALLED DR STREET. INFORMED HIM THAT BRIGIDA DOWNS TO ARRANGE ISOLATION ROOM TOMORROW , OKAY WITH IT. PT TO STAY AT HOSPITAL TODAY. CHARGE NURSE AWARE. INFORMED BRIGIDA THAT DR STREET UPDATED , OKAY WITH PLAN. INFORMED HER TO COMMUNICATE WITH DR STREET WELL FOR ANY OTHER CONCERN. INFORMED HER THAT WILL PASS INFORMATION TO PM NURSE. VERBALIZED UNDERSTANDING . CALL BACK NUMBER GIVEN [phone] FOR ANY OTHER INFORMATION. VERBALIZED UNDERSTANDING.
--- NOTE | 2018-02-14 17:30 | NUR ---
CHECKED ON PT. HAS BS 211. 4 UNITS INSULIN ADMINISTERED. PT ON REGULAR DIET. ASKING FOR DINNER TIME. INFORMED HER THAT TRAYS WILL BE PLACED AROUND 1730, CAN PROVIDE SNACKS IF SHE WANTS. STATES THAT SHE IS OKAY FOR NOW. WILL WAIT FOR DINNER. ALL SAFETY MEASURE IN PLACE. WILL CONTINUE TO MONITOR PT.
[2018-02-14] MEDS: INSULIN LISPRO SLIDING SCALE 100 UNITS/ML VIAL SUBQ PRN ×2 (17:31→21:36)
--- NOTE | 2018-02-14 18:48 | NUR ---
CHECKED ON PT. LYING ON HER BED, WATCHING TV. PT ATE ALL PORTION OF HER MEAL. STATES TO HAVE TOLERATED WELL. NO SIGN OF DISTRESS NOTED DISCONNECTED HER FROM IV. ALL SAFETY MEASURE IN PLACE. WILL CONTINUE TO MONITOR PT.
--- NOTE | 2018-02-14 19:10 | NUR ---
RECEIVED REPORT FROM DAY SHIFT NURSE AT PT BEDSIDE. PT IN STABLE CONDITION. PT IS AAO X4. PT IS ON NC 2L. RESPIRATIONS ARE EVEN AND UNLABORED. IV ACCESS IN L FA 24G, SALINE LOCKED. IV IS PATENT AND INTACT. PT IS ON CONTACT PRECAUTIONS FOR MRSA OF THE NARES. NO C/O PAIN AT THIS TIME. BED IS LOCKED, LOW POSITION WITH SIDE RAILS UP X2. BOARD UPDATED. CALL LIGHT IS WITHIN REACH. WILL CONTINUE TO MONITOR.
--- NOTE | 2018-02-14 19:10 | NUR ---
ENDORSED PT TO PM NURSE FOR CONTINUITY OF CARE. PT STABLE .
[2018-02-14] MEDS: PSYLLIUM 12.2 GM/PKT PO SCH (21:33)
[2018-02-14] MEDS: MUPIROCIN CA NASAL 2% 1GM TUBE NS SCH (21:33)
[2018-02-14] MEDS: CHLORHEXADINE GLUC 2% CLOTH TP SCH (21:33)
--- NOTE | 2018-02-14 21:37 | NUR ---
ADMINISTERED SCHEDULED MEDICATIONS. INSULIN COVERAGE GIVEN FOR BS 158. PT TOLERATED WELL. WILL CONTINUE TO MONITOR.
[2018-02-15] VITALS: BP 99/51
--- NOTE | 2018-02-15 | NUR ---
PT IS ASLEEP IN BED. NO SIGNS OR SYMPTOMS OF DISTRESS. WILL CONTINUE TO MONITOR PT.
--- NOTE | 2018-02-15 02:16 | NUR ---
NO CHANGE IN CONDITION. WILL CONTINUE TO MONITOR PT.
[2018-02-15] MEDS: BLOOD GLUCOSE MONITORING 1 DEV DEV FS SCH ×2 (06:13→11:30)
[2018-02-15] MEDS: INSULIN LISPRO SLIDING SCALE 100 UNITS/ML VIAL SUBQ PRN ×2 (06:22→13:29)
--- NOTE | 2018-02-15 06:23 | NUR ---
INSULIN COVERAGE GIVEN FOR BS 165. PT TOLERATED WELL. WILL CONTINUE TO MONITOR.
--- NOTE | 2018-02-15 07:10 | NUR ---
ENDORSED PT TO DAY SHIFT NURSE FOR CONTINUITY OF CARE. PT IN STABLE CONDITION.
--- NOTE | 2018-02-15 07:25 | NUR ---
RECEIVED REPORT FROM DIRECTOR OF STUDENT FINANCIAL AID NURSE AT PT BEDSIDE. PT IN STABLE CONDITION. PT IS AAO X4. SACRAL REDNESS/SKIN TEAR. STATES SHE IS ABLE TO WALK WITH WHEELCHAIR. PT IS ON NC 2L. RESPIRATIONS ARE EVEN AND UNLABORED. IV ACCESS IN L FA 24G, SALINE LOCKED. IV IS PATENT AND INTACT. PT IS ON CONTACT PRECAUTIONS FOR MRSA OF THE NARES. NO C/O PAIN AT THIS TIME. BED IS LOCKED, LOW POSITION WITH SIDE RAILS UP X2. BOARD UPDATED. CALL LIGHT IS WITHIN REACH. WILL CONTINUE TO MONITOR.
[2018-02-15 08:00] VITALS: BP 105/50
--- NOTE | 2018-02-15 08:04 | NUR ---
PT AWAKE AND ALERT X4, RESTING IN BED WATCHING TV. ALL SAFETY PRECAUTIONS IN PLACE. WILL CONTINUE TO MONITOR.
[2018-02-15] MEDS ORDERED: POLYETHYLENE GLYCOL 17 GM/PKT PO SCH (09:00)
[2018-02-15] MEDS: POTASSIUM CHLORIDE 20% 40 MEQ/15 ML UDC GT SCH (09:46)
[2018-02-15] MEDS: DIGOXIN 0.125 MG TAB PO SCH (09:46)
[2018-02-15] MEDS: GABAPENTIN 300 MG CAP PO SCH (09:46)
[2018-02-15] MEDS: PSYLLIUM 12.2 GM/PKT PO SCH (09:47)
--- NOTE | 2018-02-15 09:53 | NUR ---
Tongue And Groove Machine Feeder Note: I faxed patient's medical information to Mayela [facility].
--- NOTE | 2018-02-15 10:20 | NUR ---
Housekeeper Manager Note: Per Sandy from [facility] , patient may return to room 19C at their facility today, accepting physician is , case resource manager Tri lee aware.
--- NOTE | 2018-02-15 11:51 | NUR ---
GUILLERMO FLORES INQUIRING ABOUT PATIENT MOBILITY FOR WHEELCHAIR VS GURNEY TRANSFER TO SNF. TOLD MARK THAT PER PREVIOUS NURSES, PT IS ABLE TO TRANSFER WITH [facility] BUT I HAVE NOT WITNESSED IT MYSELF DURING THIS SHIFT. PER MARK, SHE WILL WORK ON GURNEY TRANSPORT DETAILS.
--- NOTE | 2018-02-15 11:56 | NUR ---
PER GUILLERMO FLORES, PT WILL BE PICKED UP BY AT 1600 TODAY FOR TRANSFER BACK TO [address], WITH ACCEPTING DR. STREET. WILL CALL FOR REPORT LATER.
--- NOTE | 2018-02-15 11:58 | NUR ---
CALLED [facility] AND SPOKE WITH CARLOS. THE AUTH FOR [facility] IS [id number] [facility] FOR 4P.M. I INFORMED ALISON BOUCHER. CARLOS ALSO SAID THAT THE AUTH FOR SNF IS [id number]. I WILL INFORMED LON AT [facility] PHONE FOR [facility] IS [phone].
--- NOTE | 2018-02-15 12:48 | NUR ---
OFFERED PT FLU VACCINE BEFORE DISCHARGE. PT WOULD LIKE TO RECEIVE. WILL ADMIN BEFORE TRANSFER TO SNF.
--- NOTE | 2018-02-15 13:29 | NUR ---
8 UNITS HUMALOG ADMINISTERED FOR BS 332
--- NOTE | 2018-02-15 13:31 | NUR ---
ADMINISTERED FLU VACCINE. PT TEACHING GIVEN. PT VERBALIZED COMPLETE UNDERSTANDING.
[2018-02-15] MEDS ORDERED: MIRABULK PO (15:09)
--- NOTE | 2018-02-15 15:12 | NUR ---
REPORT GIVEN TO CYRUS TOVAR AT [facility]. PT TO CONTINUE ALL PREVIOUS MEDS/ORDERS, EXCEPT D/C LANTUS AND START MIRALAX 17G QD CONSTIPATION. DISCUSSED LABS, VITALS, IMAGING, DX, HX WITH GUY BRIDGES. PT HAS ACTIVE MRSA NARES AND REQUIRES ISO ROOM. COLONOSCOPY ON 02/14 AND RESULTS DISCUSSED. SACRAL SKIN TEAR. CYRUS TOVAR VERBALIZED UNDERSTANDING OF PT CONDITION AND POC.
--- NOTE | 2018-02-15 16:01 | NUR ---
PATIENT ALL DRESSED. REFUSED TO UNDRESS TO TAKE DISCHARGE PHOTO SO PHOTO NOT TAKEN OF SACRAL REDNESS/TEAR.
--- NOTE | 2018-02-15 16:18 | NUR ---
DISCHARGE PAPERWORK GIVEN TO PATIENT. MED RECON TEACHING GIVEN. PT VERBALIZED COMPLETE UNDERSTANDING. PT TO FOLLOW UP WITH DR. STREET AT [facility]. IV SITE REMOVED WITH MINIMAL BLOOD LOSS AND LUMEN COMPLETELY INTACT. ID BANDS REMOVED.
--- NOTE | 2018-02-15 16:25 | NUR ---
[facility] PICKED UP PT. PT IN STABLE CONDITION.
== END 2018-02-15 16:25 | disposition home or self-care (01) | DRG 754 ==
LOC: MED 11:06 → MTU 13:15
PROVIDERS: ADMIT Family Medicine; ATTEND Family Medicine
PROC: 30233N1 Transfusion of Nonautologous Red Blood Cells into Peripheral Vein, Percutaneous Approach (ICD-10-PCS; principal; 2018-02-11)
PROC: 0DBP8ZX Excision of Rectum, Via Natural or Artificial Opening Endoscopic, Diagnostic (ICD-10-PCS; 2018-02-14)
PROC: 3E02340 Introduction of Influenza Vaccine into Muscle, Percutaneous Approach (ICD-10-PCS; 2018-02-15)
DX: C54.1 Malignant neoplasm of endometrium (principal); E43 Unspecified severe protein-calorie malnutrition; C79.82 Secondary malignant neoplasm of genital organs; K62.6 Ulcer of anus and rectum; D53.9 Nutritional anemia, unspecified; E11.649 Type 2 diabetes mellitus with hypoglycemia without coma; I48.0 Paroxysmal atrial fibrillation; R19.7 Diarrhea, unspecified; E78.5 Hyperlipidemia, unspecified; I10 Essential (primary) hypertension; K56.41 Fecal impaction; K57.30 Diverticulosis of large intestine without perforation or abscess without bleeding; Z23 Encounter for immunization; Z79.899 Other long term (current) drug therapy; Z79.4 Long term (current) use of insulin; Z86.73 Personal history of transient ischemic attack (TIA), and cerebral infarction without residual deficits; Z92.3 Personal history of irradiation; Z68.25 Body mass index [BMI] 25.0-25.9, adult
CPT/HCPCS: 36415; 71045; 74018; 80048; 80053; 82607; 82728; 82746; 82948; 83540; 83880; 84484; 85025; 85045; 85610; 85730; 86886; 86900; 86901; 86920; 87070; 87081; 90658; 93005; 94640; 99285; J1200; J2250; J3010; J7030; J7620; P9016; Q0092

== ENCOUNTER 2018-03-20 17:16 | Inpatient (IN) | payer OTHER ==
[~2018-03-20] VITALS: Ht 165.1 cm; Wt 67.6 kg
[~2018-03-20 17:16] MED LIST changes: +ACET-2619 PO; +COM5 PO; +DIGO0.122 PO; +FERR-15 PO; +HYDR-5122 PO; -INSU100S22 SQ; +LORA-476 PO; +MIRABULK PO; +MULT-2171 PO
[2018-03-20 17:17] VITALS: BP 137/63
--- NOTE | 2018-03-20 17:35 | NUR ---
72 YO FEMALE BIB EMS FROM [facility] FOR LOW HEMOGLOBIN. AWAKE AND ALERT ON ARRIVAL HAS HX OF CA. GENERALIZED PAIN DENIES N/V/D; SKIN IS LOOSE/PINK/WARM/DRY; AAOX4 WITH EVEN AND STEADY GAIT; LUNGS CLEAR BL; HR EVEN AND REGULAR; PT DENIES ANY FEVER, CP, SOB, OR COUGH AT THIS TIME; PATIENT STATES PAIN OF 5/10 AT THIS TIME; VSS; PATIENT POSITIONED FOR COMFORT; HOB ELEVATED; BEDRAILS UP X2; BED DOWN. ER MD MADE AWARE OF PT STATUS.
--- NOTE | 2018-03-20 18:06 | NUR ---
ATTEMPTED TO GET IV ACCESS. UNABLE TO GET. ASKED FOR ASSISTANCE FROM ANOTHER RN, MONA.
[2018-03-20 18:18] LABS: BASOPHILS % (AUTO) 0.2 % (0.0-2.0); EOSINOPHILS # (AUTO) 0.2 K/uL (0-0.4); EOSINOPHILS % (AUTO) 5.1 % (0.0-4.0); HEMATOCRIT 21.3 % (36-48); LYMPHOCYTES # (AUTO) 0.4 K/uL (2.5-16.5); LYMPHOCYTES % (AUTO) 10.2 % (20.5-51.1); MEAN CORPUSCULAR HEMOGLOBIN 32 pg (27-31); MEAN CORPUSCULAR HGB CONC 32 g/dL (33-37); MEAN CORPUSCULAR VOLUME 100.2 fL (80-94); MONOCYTES # (AUTO) 0.2 K/uL (0.8-1.0); MONOCYTES % (AUTO) 5.5 % (1.7-9.3); NEUTROPHILS # (AUTO) 3.5 K/uL (1.8-7.7); PLATELET COUNT (AUTO) 204 K/uL (140-450); RED BLOOD CELL COUNT(AUTO) 2.12 MIL/uL (4.20-5.40); RED CELL DISTRIBUTION WIDTH 22.8 % (11.6-13.7); WHITE BLOOD COUNT (AUTO) 4.4 K/uL (4.8-10.8)
[2018-03-20 18:24] LABS: HEMOGLOBIN 6.8 g/dL (12.0-16.0)
[2018-03-20 18:38] LABS: PROTHROMBIN TIME 13.1 secs (10.8-13.4)
[2018-03-20 18:42] LABS: ALBUMIN 2.5 g/dL (3.4-5.0); ASPARTATE AMINOTRANSFERASE 16 U/L (15-37); CARBON DIOXIDE 24.8 mmol/L (21-32); CHLORIDE 104 mmol/L (98-107); CREATININE 1.1 mg/dL (0.6-1.3); GLUCOSE 208 mg/dL (74-106); POTASSIUM 3.8 mmol/L (3.5-5.1); SODIUM SERUM 139 mmol/L (136-145); TOTAL BILIRUBIN 0.2 mg/dL (0.0-1.0); UREA NITROGEN, BLOOD 15 mg/dL (7-18)
--- NOTE | 2018-03-20 19:05 | NUR ---
ASSUMED CARE OF PT AT THIS TIME. PT AWAITS MD DISPOSITION. HOLLIS. NICHOLE. WILL CONTINUE TO MONITOR.
--- NOTE | 2018-03-20 19:11 | NUR ---
Pt report given to SANDER TRACY. Transfer of care at this time.
--- NOTE | 2018-03-20 19:42 | NUR ---
Dr. Schwarz evaluating patient at bedside.
[2018-03-20] MEDS ORDERED: NACL 0.9% 1,000 ML IV ONE (19:55)
[2018-03-20] MEDS ORDERED: DOCUSATE SODIUM 100 MG GELCAP PO PRN ×2 (20:15→20:25)
[2018-03-20] MEDS ORDERED: NACL 0.9% 1,000 ML IV SCH (20:15)
[2018-03-20] MEDS ORDERED: ACETAMINOPHEN 325 MG TAB PO PRN ×2 (20:15→20:25)
[2018-03-20] MEDS ORDERED: HYDROcodone/APAP 7.5/325 MG 1 TAB PO PRN ×2 (20:15→20:25)
[2018-03-20] MEDS ORDERED: ONDANSETRON 4 MG/2 ML VIAL IM/IVP PRN ×2 (20:15→20:25)
--- NOTE | 2018-03-20 20:38 | NUR ---
Dr. Fadumo Novak evaluating patient at bedside.
[2018-03-20 21:10] VITALS: BP 96/49
--- NOTE | 2018-03-20 21:10 | NUR ---
Patient will be admitted to care of [facility]. Admitted to TELE. Will go to room 115. Belongings list completed. Report to SANDER JAUREGUI.
[2018-03-20] MEDS ORDERED: LORazepam 1 MG TAB PO PRN (21:40)
[2018-03-20] MEDS ORDERED: ATORVASTATIN 20 MG TAB PO SCH (22:00)
[2018-03-20 22:08] LABS: CHOL/HDL RATIO 2.4 (1-4.5); FREE T4 (FREE THYROXINE) 0.86 ng/dL (0.76-1.46); MAGNESIUM 1.7 mg/dL (1.8-2.4); PHOSPHORUS 3.4 mg/dL (2.5-4.9); THYROID STIMULATING HORMONE 1.19 uIU/mL (0.34-3.74)
--- NOTE | 2018-03-20 22:10 | NUR ---
ADMITTED A 72F FROM ER. CAME BY JANE DUE TO BLOOD IN THE STOOL AND WEAKNESS. WITH HGB/HCT LOW. WILL NEED BLOOD TRANSFUSION TONIGHT . AWAKE, ALERT AND ORIENTED X4. ON TELE MONITOR . WITH NO C/O ANY DISCOMFORT NOR PAIN NOTED. NO DIZZINESS ALSO NOTED AT THIS TIME. BEDREST. SHE SAID SHE DOESN'T AMBULATE . SHE USE WHEELCHAIR ONLY DUE TO GEN WEAKNESS. HAS IV ACCESS ON THE RT AC G#20. CLEAR AND PATENT. WITH SUMANTH CATH ON THE RT CHEST. INITIAL SKIN ASSESSMENT DONE WITH SANDER SOLARESDIRECTOR TECHNICAL. SKIN INTACT. PT INCONTINENT OF URINE AND STOOL.. JUST HAD MODERATE BLACKISH SOFT STOOL . SHE WAS CLEANED AND KEPT DRY. PLAN OF CARE DISCUSSED AND VERBALIZED UNDERSTANDING. BED ON LOWEST POSITION. FREQUENT ROUNDS NEEDED. CALL LIGHT PLACED WITHIN EASY REACH. PT PLACED ON CONTACT ISOLATION DUE TO HX:MRSA NARES. PT ALSO MADE AWARE OF THIS . WILL CONTINUE TO MONITOR.
[2018-03-20] MEDS: NACL 0.9% 1,000 ML IV SCH (22:17)
[2018-03-20 22:32] VITALS: BP 97/39
--- NOTE | 2018-03-20 22:47 | NUR ---
I UNIT PRBC STARTED ON THE RT AC G#20 AFTER ANOTHER LICENSE SANDER NEVAREZ VERIFIED. PT MADE AWARE OF THE POSSIBLE REACTIONS TO THE BLOOD . VERBALIZED UNDERSTANDING. VITAL SIGNS TAKEN PRIOR TO START OF BLOOD TRANSFUSION. WILL CONTINUE TO MONITOR.
[2018-03-20] MEDS ORDERED: MAGNESIUM OXIDE 400 MG TAB PO SCH (23:00)
--- NOTE | 2018-03-20 23:17 | NUR ---
BLOOD TRANSFUSION TRANSFUSION STILL GOING ON. NO REACTION NOTED . WILL CONTINUE TO MONITOR.
[2018-03-20 23:47] VITALS: BP 99/44
[2018-03-21] VITALS (7 sets, daily range): BP systolic 99–128; BP diastolic 45–66
[2018-03-21] MEDS ORDERED: FUROSEMIDE 20 MG TAB PO SCH
[2018-03-21] MEDS ORDERED: ACETAMINOPHEN 325 MG TAB PO SCH
--- NOTE | 2018-03-21 02:10 | NUR ---
RT AC G #20 IV ACCESS INFILTRATED, SWOLLEN. DISCONTINUED. WARM COMPRESS APPLIED TO THE AREA. THEN A NEW IV ACCESS STARTED ON THE LT FA G#22. CLEAR AND PATENT.
--- NOTE | 2018-03-21 02:18 | NUR ---
DR. ZAIDI MADE AWARE ABOUT THE BLOOD TRANSFUSION OF 1 UNIT PRBC ALREADY DONE. HE SAID HE WILL ADJUST THE TIME FOR BLOOD DRAW THIS AM EARLIER.
[2018-03-21] MEDS ORDERED: DEXTROSE 50% 50 ML SYR IVP PRN (02:35)
--- NOTE | 2018-03-21 03:00 | NUR ---
PT IS ASLEEP. NO S/S OF ANY DISCOMFORT NOR DISTRESS NOTED.
--- NOTE | 2018-03-21 05:00 | NUR ---
PT ASLEEP. NO S/S OF ANY PAIN NOT DISCOMFORT NOTED.
[2018-03-21] MEDS: BLOOD GLUCOSE MONITORING 1 DEV DEV FS SCH ×4 (06:24→20:37)
[2018-03-21] MEDS: INSULIN LISPRO SLIDING SCALE 100 UNITS/ML VIAL SUBQ PRN ×4 (06:24→20:38)
--- NOTE | 2018-03-21 06:24 | NUR ---
BLOOD SUGAR WAS CHECKED RESULT 159. INSULIN COVERAGE HUMALOG 2 UNITS GIVEN SUBQ
--- NOTE | 2018-03-21 07:38 | NUR ---
ENDORSED PT IN STABLE CONDITION TO AM NURSE.
[2018-03-21 07:59] LABS: CREATININE 0.7 mg/dL (0.6-1.3); GLUCOSE 145 mg/dL (74-106); UREA NITROGEN, BLOOD 11 mg/dL (7-18)
[2018-03-21 08:08] LABS: BASOPHILS % (AUTO) 0.7 % (0.0-2.0); EOSINOPHILS # (AUTO) 0.3 K/uL (0-0.4); EOSINOPHILS % (AUTO) 6.5 % (0.0-4.0); LYMPHOCYTES # (AUTO) 0.5 K/uL (2.5-16.5); LYMPHOCYTES % (AUTO) 9.6 % (20.5-51.1); MEAN CORPUSCULAR HEMOGLOBIN 33 pg (27-31); MEAN CORPUSCULAR HGB CONC 34 g/dL (33-37); MEAN CORPUSCULAR VOLUME 99.6 fL (80-94); MONOCYTES # (AUTO) 0.4 K/uL (0.8-1.0); MONOCYTES % (AUTO) 7.5 % (1.7-9.3); NEUTROPHILS # (AUTO) 3.9 K/uL (1.8-7.7); NEUTROPHILS % (AUTO) 75.7 % (42.2-75.2); PLATELET COUNT (AUTO) 191 K/uL (140-450); RED BLOOD CELL COUNT(AUTO) 1.93 MIL/uL (4.20-5.40); RED CELL DISTRIBUTION WIDTH 23.4 % (11.6-13.7); WHITE BLOOD COUNT (AUTO) 5.2 K/uL (4.8-10.8)
[2018-03-21 08:15] LABS: HEMATOCRIT 19.2 % (36-48); HEMOGLOBIN 6.4 g/dL (12.0-16.0)
--- NOTE | 2018-03-21 08:20 | NUR ---
PT RETURNED FROM CT SCAN.
[2018-03-21 08:22] LABS: ANION GAP 15.4 (8-16); CARBON DIOXIDE 20.7 mmol/L (21-32); CHLORIDE 111 mmol/L (98-107); POTASSIUM 4.1 mmol/L (3.5-5.1); SODIUM SERUM 143 mmol/L (136-145)
[2018-03-21] MEDS: FERROUS SULFATE 325 MG TABEC PO SCH ×3 (08:38→18:00)
[2018-03-21] MEDS: MAGNESIUM OXIDE 400 MG TAB PO SCH (08:38)
[2018-03-21] MEDS: GABAPENTIN 300 MG CAP PO SCH ×2 (08:38→20:33)
[2018-03-21] MEDS: DIGOXIN 0.125 MG TAB PO SCH (08:41)
--- NOTE | 2018-03-21 08:49 | NUR ---
AM MEDS GIVEN PT SANDRA WELL, PT FINISHED BREAKFAST.
--- NOTE | 2018-03-21 09:10 | NUR ---
PATIENT HAS BEEN SCREENED AND CATEGORIZED MODERATE NUTRITION RISK. PATIENT WILL BE SEEN WITHIN 3-5 DAYS OF ADMISSION. 03/23/18 03/25/[address]
--- NOTE | 2018-03-21 10:45 | NUR ---
LARGE WATERY DARK STOOL X1, OB COLLECTED SENT TO LAB, BED BATH GIVEN, PERICARE DONE, NO ACTIVE BLEEDING NOTED.
[2018-03-21] MEDS: NACL 0.9% 1,000 ML IV SCH (12:24)
--- NOTE | 2018-03-21 13:02 | NUR ---
LARGE BM AGAIN, LOOSE DARK/BLACK STOOL, PERICARE DONE, PT SANDRA WELL, US AT BEDSIDE.
--- NOTE | 2018-03-21 13:45 | NUR ---
PRBC STARTED, 2RN VERIFICATION WITH TAINA BOUCHER, WILL MONITOR CLOSELY FOR S/S OF REACTION.
--- NOTE | 2018-03-21 14:02 | NUR ---
NO S/S OF TRANSFUSION REACTION AT THIS TIME, PT RESTING QUIETLY IN NAD.
[2018-03-21] MEDS ORDERED: PANTOPRAZOLE 40 MG INJ VIAL IVP SCH (14:37)
--- NOTE | 2018-03-21 15:02 | NUR ---
PT RESTING QUIETLY IN NAD, RESP EVEN UNLABORED, BLOOD TRANSFUSION CONTINUES, IV SITE WNL, PT DENEIS ANY IMMEDIATE NEEDS, WILL CONTINUE TO MOTNIOR.
--- NOTE | 2018-03-21 16:30 | NUR ---
BLOOD TRANSFUSION COMPLETED, NO SIGN OR SYMPTOMS OF REACTION NOTED, PT AWAKE WATCHING TV, DENIES ANY PAIN, WILL CONTINUE TO MONITOR.
--- NOTE | 2018-03-21 18:00 | NUR ---
6 UNITS INSULIN GIVEN FOR 292 BLOOD SUGAR, PT RESTING QUIETLY WATCHING TV, DENIES ANY IMMEDIATE NEEDS, IVF INFUSING, IV SITE WNL, SAFETY MEASURES IN PLACE, WILL CONTINUE TO MONITOR.
--- NOTE | 2018-03-21 19:18 | NUR ---
REPORT GIVEN TO DIRECTOR OF SPECIAL EVENTS NURSE CHAVO MANUEL IN STABLE CONDITION.
--- NOTE | 2018-03-21 19:19 | NUR ---
RECEIVED REPORT FROM DAY SHIFT RN RYAN FOR CONTINUITY OF CARE. PT IS A/OX4, ON ROOM AIR. PT AMBULATES WITH STEADY GAIT, PT HAS DISCOLORATION TO RIGHT UPPER ARM, REST OF SKIN IS PINK/WARM/DRY AND INTACT. PT IS ABLE TO MAKE NEEDS KNOWN, AND ABLE TO FOLLOW COMMANDS. LUNGS SOUNDS CLEAR, HR EVEN AND REGULAR. PT HAS 22G IV TO LEFT FOREARM, ASYMPTOMATIC AND INTACT. PT DENIES ANY PAIN AT THIS TIME. VITAL SIGNS STABLE. NO SIGNS OF DISTRESS NOTED. PT POSITIONED FOR COMFORT. BED RAILS UP X2, BED IN LOWEST POSITION. CALL LIGHT WITHIN REACH, WILL CONTINUE TO MONITOR.
[2018-03-21 19:55] LABS: BASOPHILS % (AUTO) 0.1 % (0.0-2.0); EOSINOPHILS # (AUTO) 0.2 K/uL (0-0.4); EOSINOPHILS % (AUTO) 4.9 % (0.0-4.0); HEMATOCRIT 23.8 % (36-48); HEMOGLOBIN 7.7 g/dL (12.0-16.0); LYMPHOCYTES # (AUTO) 0.5 K/uL (2.5-16.5); LYMPHOCYTES % (AUTO) 9.5 % (20.5-51.1); MEAN CORPUSCULAR HEMOGLOBIN 32 pg (27-31); MEAN CORPUSCULAR HGB CONC 33 g/dL (33-37); MEAN CORPUSCULAR VOLUME 97.6 fL (80-94); MONOCYTES # (AUTO) 0.4 K/uL (0.8-1.0); MONOCYTES % (AUTO) 8.4 % (1.7-9.3); NEUTROPHILS # (AUTO) 3.7 K/uL (1.8-7.7); NEUTROPHILS % (AUTO) 77.1 % (42.2-75.2); PLATELET COUNT (AUTO) 169 K/uL (140-450); RED BLOOD CELL COUNT(AUTO) 2.44 MIL/uL (4.20-5.40); RED CELL DISTRIBUTION WIDTH 21.9 % (11.6-13.7); WHITE BLOOD COUNT (AUTO) 4.8 K/uL (4.8-10.8)
[2018-03-21] MEDS: PANTOPRAZOLE 40 MG INJ VIAL IVP SCH (20:33)
[2018-03-21] MEDS: ATORVASTATIN 20 MG TAB PO SCH (20:33)
--- NOTE | 2018-03-21 20:39 | NUR ---
ADMINISTERED SCHEDULED MEDICATIONS AND 4 UNITS OF HUMALOG FOR BLOOD SUGAR 232. PT VERBALIZED UNDERSTANDING OF MEDICATIONS AND TOLERATED ADMINISTRATION WELL.
[2018-03-22] VITALS: BP 118/44
--- NOTE | 2018-03-22 | NUR ---
VITAL SIGNS STABLE. NO SIGNS OF DISTRESS NOTED. PT POSITIONED FOR COMFORT. BED RAILS UP X2, BED IN LOWEST POSITION. CALL LIGHT WITHIN REACH, WILL CONTINUE TO MONITOR.
--- NOTE | 2018-03-22 02:05 | NUR ---
NO SIGNS OF DISTRESS NOTED. PT PT RESTING COMFORTABLY IN BED. BED RAILS UP X2, BED IN LOWEST POSITION. CALL LIGHT WITHIN REACH, WILL CONTINUE TO MONITOR.
[2018-03-22] MEDS ORDERED: Z-GUARD PASTE TP SCH (02:30)
[2018-03-22 04:00] VITALS: BP 110/35
--- NOTE | 2018-03-22 04:15 | NUR ---
PT STABLE, RESTING. NO SIGNS OF DISTRESS NOTED.
[2018-03-22] MEDS: BLOOD GLUCOSE MONITORING 1 DEV DEV FS SCH ×4 (05:52→21:27)
[2018-03-22] MEDS: NACL 0.9% 1,000 ML IV SCH ×2 (05:52→22:31)
[2018-03-22] MEDS: INSULIN LISPRO SLIDING SCALE 100 UNITS/ML VIAL SUBQ PRN ×4 (05:53→21:26)
--- NOTE | 2018-03-22 06:19 | NUR ---
PT BRUSHING TEETH. OFFERED ASSISTANCE BUT PT REFUSED.
[2018-03-22 06:29] LABS: FOLIC ACID 7.5 ng/mL (>3.0)
[2018-03-22 06:29] LABS: T4 (THYROXINE) 7.1 ug/dL (4.5-12.0)
[2018-03-22 06:48] LABS: MAGNESIUM 1.7 mg/dL (1.8-2.4); PHOSPHORUS 3.2 mg/dL (2.5-4.9)
[2018-03-22 06:51] LABS: ANION GAP 13.8 (8-16); CARBON DIOXIDE 22.2 mmol/L (21-32); CHLORIDE 109 mmol/L (98-107); CREATININE 0.8 mg/dL (0.6-1.3); GLUCOSE 224 mg/dL (74-106); SODIUM SERUM 141 mmol/L (136-145); UREA NITROGEN, BLOOD 9 mg/dL (7-18)
[2018-03-22 06:58] LABS: BASOPHILS % (AUTO) 0.6 % (0.0-2.0); EOSINOPHILS # (AUTO) 0.3 K/uL (0-0.4); HEMATOCRIT 22.9 % (36-48); HEMOGLOBIN 7.5 g/dL (12.0-16.0); LYMPHOCYTES # (AUTO) 0.4 K/uL (2.5-16.5); LYMPHOCYTES % (AUTO) 8.8 % (20.5-51.1); MEAN CORPUSCULAR HEMOGLOBIN 32 pg (27-31); MEAN CORPUSCULAR HGB CONC 33 g/dL (33-37); MEAN CORPUSCULAR VOLUME 97.2 fL (80-94); MONOCYTES # (AUTO) 0.3 K/uL (0.8-1.0); NEUTROPHILS # (AUTO) 3.8 K/uL (1.8-7.7); NEUTROPHILS % (AUTO) 77.6 % (42.2-75.2); PLATELET COUNT (AUTO) 168 K/uL (140-450); RED BLOOD CELL COUNT(AUTO) 2.36 MIL/uL (4.20-5.40); RED CELL DISTRIBUTION WIDTH 22.4 % (11.6-13.7); WHITE BLOOD COUNT (AUTO) 4.9 K/uL (4.8-10.8)
--- NOTE | 2018-03-22 07:33 | NUR ---
ENDORSED PT TO DAY SHIFT SANDER ROLDAN FOR CONTINUITY OF CARE. PT IN STABLE CONDITION.
--- NOTE | 2018-03-22 07:34 | NUR ---
REPORT RECEIVED FROM CASE MANAGER SPECIALIST NURSE, PT AWAKE RESTING QUIETLY IN NAD, RESP EVEN UNLABORED ON RA, POC REVIEWED, NO IMMEDIATE NEEDS AT THIS TIME, ALL SAFETY MEASURES IN PLACE, WILL CONTINUE TO MONITOR.
[2018-03-22 08:00] VITALS: BP_SYST 105; BP_SYST 126; BP_DIAS 49; BP_DIAS 61
--- NOTE | 2018-03-22 09:15 | NUR ---
PHYSICAL THERAPY AT BEDSIDE
--- NOTE | 2018-03-22 09:30 | NUR ---
BEDBATH GIVEN BY CLINICAL NURSING DIRECTOR, PT WITH LARGE BM, PERICARE DONE, PT SANDRA WELL.
[2018-03-22] MEDS: PANTOPRAZOLE 40 MG INJ VIAL IVP SCH ×2 (09:47→21:18)
[2018-03-22] MEDS: DIGOXIN 0.125 MG TAB PO SCH (09:47)
[2018-03-22] MEDS: FERROUS SULFATE 325 MG TABEC PO SCH ×3 (09:47→16:16)
[2018-03-22] MEDS: MAGNESIUM OXIDE 400 MG TAB PO SCH (09:48)
[2018-03-22] MEDS: GABAPENTIN 300 MG CAP PO SCH ×2 (10:36→21:18)
[2018-03-22 12:00] VITALS: BP 105/49
[2018-03-22] MEDS ORDERED: MAG SULF 2000 MG/WATER PREMIX 50 ML IV ONE (12:15)
[2018-03-22] MEDS: MAGNESIUM SULFATE 1GM in DEXTROSE 5% 100 ML PREMIX IV SCH ×2 (13:47→15:12)
[2018-03-22] MEDS ORDERED: SODIUM FERRIC GLUCONATE 125 MG in NACL 0.9% 100 ML IV SCH (15:00)
--- NOTE | 2018-03-22 15:15 | NUR ---
RECEIVED DISCHARGE PLANNING FOR THIS PATIENT. I CALLED LON AT [facility] AND FAXED INFORMATION TO HER. SHE SAID FOR TOMORROW WHEN DISCHARGED THE PATIENT CAN GO TO ROOM 17C UNDER [address]. AUTH FROM [facility] FOR TRANSPORT IS [id number]
[2018-03-22 16:00] VITALS: BP 102/50
--- NOTE | 2018-03-22 16:21 | NUR ---
PT SLEEPING QUIETLY IN NAD, RESP EVEN UNLABORED, PT AROUSES EASILY, DENIES PAIN OR DISCOMFORT, BLOOD SUGAR 270, WILL GIVE 6U INSULIN PER SLIDING SCALE, NO ACTIVE BLEEDING ANYWHERE, IRON IV INFUSING, IV SITE WNL, WILL CONTINUE TO MONITOR.
--- NOTE | 2018-03-22 19:23 | NUR ---
REPORT GIVEN TO PRODUCTION LINE OPERATOR NURSE, PT IN STABLE CONDITION.
[2018-03-22 20:00] VITALS: BP 128/52
[2018-03-22] MEDS: ATORVASTATIN 20 MG TAB PO SCH (21:18)
--- NOTE | 2018-03-22 21:28 | NUR ---
ADMINISTERED SCHEDULED MEDICATIONS AND 4 UNITS OF HUMALOG FOR BLOOD SUGAR 243. PT VERBALIZED UNDERSTANDING OF MEDICATIONS AND TOLERATED ADMINISTRATION WELL.
--- NOTE | 2018-03-22 23:04 | NUR ---
PT HAD BM, STILL LIQUID BLACK STOOL, MODERATE SIZED.
[2018-03-23] VITALS: BP 126/57
--- NOTE | 2018-03-23 01:10 | NUR ---
PT HAD ANOTHER BM, STILL LIQUID BLACK STOOL, MODERATE SIZED.
--- NOTE | 2018-03-23 03:15 | NUR ---
PT HAD BM, STILL LIQUID BLACK STOOL, MODERATE SIZED.
[2018-03-23 04:00] VITALS: BP 124/55
--- NOTE | 2018-03-23 05:08 | NUR ---
PT HAD 6TH BM TONIGHT, STILL LIQUID BLACK STOOL, MODERATE SIZED.
[2018-03-23] MEDS: BLOOD GLUCOSE MONITORING 1 DEV DEV FS SCH ×2 (06:38→11:59)
[2018-03-23] MEDS: INSULIN LISPRO SLIDING SCALE 100 UNITS/ML VIAL SUBQ PRN ×2 (06:39→12:12)
--- NOTE | 2018-03-23 07:05 | NUR ---
ENDORSED PT TO DAY SHIFT RN ALISON FOR CONTINUITY OF CARE. PT IN STABLE CONDITION.
--- NOTE | 2018-03-23 07:07 | NUR ---
RECEIVED BEDSIDE REPORT FROM KITCHEN AND BATH DESIGNER RN CONTINUITY OF CARE. AOX4. NO S/S DISTRESS. DENIES PAIN AND DISCOMFORT. ECCHYMOSIS ON RIGHT ARM EXTENSOR SURFACE. SKIN INTACT. PT IS ABLE TO MAKE NEEDS KNOWN, AND ABLE TO FOLLOW COMMANDS. LUNGS CTA. CONTROLLED AFIB ON MONITOR. IV SITE PATENT AND ASYMPTOMATIC, INFUSING IVF PER MD ORDERS. CENTRAL VENOUS ACCESS PORT ON LT UPPER CHEST. VITAL SIGNS STABLE. ALL SAFETY PRECAUTIONS IN PLACE, WILL CONTINUE TO MONITOR.
[2018-03-23 07:44] LABS: MAGNESIUM 1.8 mg/dL (1.8-2.4); PHOSPHORUS 3.2 mg/dL (2.5-4.9)
[2018-03-23 08:00] VITALS: BP 121/60
[2018-03-23 08:07] LABS: BASOPHILS % (AUTO) 0.3 % (0.0-2.0); EOSINOPHILS # (AUTO) 0.3 K/uL (0-0.4); EOSINOPHILS % (AUTO) 6.5 % (0.0-4.0); HEMATOCRIT 23.8 % (36-48); HEMOGLOBIN 7.8 g/dL (12.0-16.0); LYMPHOCYTES # (AUTO) 0.4 K/uL (2.5-16.5); LYMPHOCYTES % (AUTO) 8.2 % (20.5-51.1); MEAN CORPUSCULAR HEMOGLOBIN 32 pg (27-31); MEAN CORPUSCULAR HGB CONC 33 g/dL (33-37); MEAN CORPUSCULAR VOLUME 98.9 fL (80-94); MONOCYTES # (AUTO) 0.4 K/uL (0.8-1.0); MONOCYTES % (AUTO) 7.9 % (1.7-9.3); NEUTROPHILS # (AUTO) 3.6 K/uL (1.8-7.7); NEUTROPHILS % (AUTO) 77.1 % (42.2-75.2); PLATELET COUNT (AUTO) 173 K/uL (140-450); RED BLOOD CELL COUNT(AUTO) 2.41 MIL/uL (4.20-5.40); RED CELL DISTRIBUTION WIDTH 23.1 % (11.6-13.7); WHITE BLOOD COUNT (AUTO) 4.6 K/uL (4.8-10.8)
[2018-03-23] MEDS ORDERED: ASCORBIC ACID 500 MG TAB PO SCH (09:00)
[2018-03-23 09:01] LABS: CARBON DIOXIDE 24.1 mmol/L (21-32); CHLORIDE 109 mmol/L (98-107); CREATININE 0.8 mg/dL (0.6-1.3); GLUCOSE 238 mg/dL (74-106); POTASSIUM 4.1 mmol/L (3.5-5.1); SODIUM SERUM 143 mmol/L (136-145)
[2018-03-23] MEDS: PANTOPRAZOLE 40 MG INJ VIAL IVP SCH (09:06)
[2018-03-23] MEDS: MAGNESIUM OXIDE 400 MG TAB PO SCH (09:06)
[2018-03-23] MEDS: GABAPENTIN 300 MG CAP PO SCH (09:06)
[2018-03-23] MEDS: FERROUS SULFATE 325 MG TABEC PO SCH ×2 (09:06→11:58)
[2018-03-23] MEDS: DIGOXIN 0.125 MG TAB PO SCH (09:07)
[2018-03-23] MEDS: NACL 0.9% 1,000 ML IV SCH (09:07)
--- NOTE | 2018-03-23 09:19 | NUR ---
ADMINISTERED SCHEDULED MORNING MEDICATIONS. APICAL PULSE AUSCULTATED FOR FULL MINUTE BEFORE DIGOXIN ADMINISTRATION. ALL SAFETY PRECAUTIONS IN PLACE, WILL CONTINUE TO MONITOR. Addendum: 03/23/18 at 1101 by Alyx Robles Meng RN NOTIFIED PATIENT OF PLAN TO D/C BACK TO [facility]. PT VERBALIZED UNDERSTANDING.
[2018-03-23 09:58] LABS: UREA NITROGEN, BLOOD 11 mg/dL (7-18)
--- NOTE | 2018-03-23 11:00 | NUR ---
CALLED EMILY RODAS TO GIVE REPORT. PER EMILY RODAS, ROOM 17C IS OCCUPIED RIGHT NOW. THEY WILL CALL ME BACK.
--- NOTE | 2018-03-23 11:20 | NUR ---
ENDORSED POC TO LIZETH BOUCHER AT [facility]. NOTIFIED RN OF PICKUP TIME OF 1500. DISCUSSED PATIENT DIAGNOSIS, VITALS, LABS, CONSULTS, MEDICATIONS, AND CONTINUED PLAN OF CARE WITH RN. PT RECEIVED 2 UNITS PRBC DURING THIS ADMISSION AND H&H ARE STABLE ENOUGH FOR DISCHARGE BACK TO [facility]. INFORMED RN THAT PATIENT IS STILL HAVING LOOSE BLACK STOOLS. LIZETH BOUCHER VERBALIZED COMPLETE UNDERSTANDING. Addendum: 03/23/18 at 1143 by Alyx Robles Meng, RN PER EUGENIO BOUCHER, PATIENT HAD REFUSED PNEUMOVAX AT [facility]. WILL OFFER VACCINE TO PATIENT BEFORE DISCHARGE.
[2018-03-23 12:00] VITALS: BP 110/53
--- NOTE | 2018-03-23 12:41 | NUR ---
NOTIFIED BROTHER LEYLA [phone] OF PLANS TO TRANSFER PT TO [facility] AT 3PM TODAY. BROTHER VERBALIZED COMPLETE UNDERSTANDING.
--- NOTE | 2018-03-23 15:00 | NUR ---
DISCHARGE PAPERWORK GIVEN TO PATIENT. PT TO F/U WITH DR. [address] AT [facility]. DISCUSSED CONTINUED PLAN OF CARE AND MEDICATION RECONCILIATION TEACHING GIVEN. PT VERBALIZED COMPLETE UNDERSTANDING BUT FURTHER REINFORCEMENT MAY BE NECESSARY. OFFERED PNEUMOVAX TO PATIENT. EXPLAINED INDICATION AND RISKS AND BENEFITS. PT REFUSED PNEUMOVAX.
--- NOTE | 2018-03-23 15:10 | NUR ---
[facility] HERE TO [facility] PATIENT. ALL PERSONAL BELONGINGS ARE WITH PATIENT. IV SITE REMOVED WITH MINIMAL BLOOD LOSS AND LUMEN COMPLETELY INTACT. NEEDLE REMOVED FROM CENTRAL VENOUS ACCESS PORT ON LT UPPER CHEST WITH MINIMAL BLOOD LOSS. ID BANDS REMOVED.
[2018-03-25 10:58] LABS: FERRITIN 41 ng/mL (15 - 150); TRANSFERRIN 196 mg/dL (200 - 370)
== END 2018-03-23 15:10 | disposition home or self-care (01) | DRG 377 ==
LOC: MED 17:16 → MTU 20:15
PROVIDERS: ADMIT Family Medicine; ATTEND Family Medicine
PROC: 30233N1 Transfusion of Nonautologous Red Blood Cells into Peripheral Vein, Percutaneous Approach (ICD-10-PCS; principal; 2018-03-20)
DX: K92.2 Gastrointestinal hemorrhage, unspecified (principal); E43 Unspecified severe protein-calorie malnutrition; C78.02 Secondary malignant neoplasm of left lung; C78.01 Secondary malignant neoplasm of right lung; D53.9 Nutritional anemia, unspecified; I48.91 Unspecified atrial fibrillation; E83.42 Hypomagnesemia; F41.9 Anxiety disorder, unspecified; E78.5 Hyperlipidemia, unspecified; R26.81 Unsteadiness on feet; Z51.5 Encounter for palliative care; I10 Essential (primary) hypertension; D50.9 Iron deficiency anemia, unspecified; K80.20 Calculus of gallbladder without cholecystitis without obstruction; I70.0 Atherosclerosis of aorta; M51.36 Other intervertebral disc degeneration, lumbar region; E11.51 Type 2 diabetes mellitus with diabetic peripheral angiopathy without gangrene; E11.65 Type 2 diabetes mellitus with hyperglycemia; F43.20 Adjustment disorder, unspecified; C55 Malignant neoplasm of uterus, part unspecified; Z68.24 Body mass index [BMI] 24.0-24.9, adult; Z79.01 Long term (current) use of anticoagulants; Z79.4 Long term (current) use of insulin; Z79.899 Other long term (current) drug therapy; Z86.73 Personal history of transient ischemic attack (TIA), and cerebral infarction without residual deficits; Z92.3 Personal history of irradiation; Z92.21 Personal history of antineoplastic chemotherapy
CPT/HCPCS: 36415; 71045; 80048; 80053; 80162; 82150; 82272; 82607; 82728; 82746; 82948; 83036; 83540; 83690; 83735; 83880; 84100; 84436; 84439; 84443; 84479; 84484; 85025; 85045; 85610; 85730; 86886; 86900; 86901; 86920; 87081; 93005; 93925; 93970; 96361; 96374; 97116; 99285; C9113; J1815; J2916; J7030; P9016; Q0092